=== PATIENT | female | born 1990 | race Caucasian/White ===

== ENCOUNTER 2020-01-09 12:18 | Outpatient (REF) | payer OTHER, SELFPAY ==
[2020-01-09 14:34] LABS: Amphetamine Screen Urine Not Detected (Not Detect); Barbiturates, Urine Not Detected (Not Detect); Benzodiazepines Screen Urine Not Detected (Not Detect); Cannabinoid Screen Urine Not Detected (Not Detect); Cocaine Screen Urine Not Detected (Not Detect); Opiate Screen Urine Not Detected (Not Detect); Phencyclidine Screen Urine Not Detected (Not Detect)
== END 2020-01-09 12:19 | disposition home or self-care (01) ==
LOC: HO.LABR 12:18
PROVIDERS: PCP Hospitalist; Visit Provider Physician Assistant
DX: F11.99 Opioid use, unspecified with unspecified opioid-induced disorder (principal)
CPT/HCPCS: 36415; 80307

== ENCOUNTER 2020-01-15 12:16 | Outpatient (REF) | payer OTHER, SELFPAY ==
[2020-01-15 13:36] LABS: Amphetamine Screen Urine Not Detected (Not Detect); Barbiturates, Urine Not Detected (Not Detect); Benzodiazepines Screen Urine Not Detected (Not Detect); Cannabinoid Screen Urine Not Detected (Not Detect); Cocaine Screen Urine Not Detected (Not Detect); Opiate Screen Urine Not Detected (Not Detect); Phencyclidine Screen Urine Not Detected (Not Detect)
== END 2020-01-15 12:17 | disposition home or self-care (01) ==
LOC: HO.LABR 12:16
PROVIDERS: Visit Provider Physician Assistant
DX: F11.99 Opioid use, unspecified with unspecified opioid-induced disorder (principal)
CPT/HCPCS: 80307

== ENCOUNTER 2020-01-22 13:39 | Outpatient (REF) | payer OTHER, SELFPAY ==
[2020-01-22 15:41] LABS: Amphetamine Screen Urine Not Detected (Not Detect); Barbiturates, Urine Not Detected (Not Detect); Benzodiazepines Screen Urine Not Detected (Not Detect); Cannabinoid Screen Urine Not Detected (Not Detect); Cocaine Screen Urine Not Detected (Not Detect); Opiate Screen Urine Not Detected (Not Detect); Phencyclidine Screen Urine Not Detected (Not Detect)
== END 2020-01-22 13:40 | disposition home or self-care (01) ==
LOC: HO.LABR 13:39
PROVIDERS: PCP Hospitalist; Visit Provider Physician Assistant
DX: F11.99 Opioid use, unspecified with unspecified opioid-induced disorder (principal)
CPT/HCPCS: 80307

== ENCOUNTER 2020-01-27 11:40 | Outpatient (REF) | payer OTHER, SELFPAY ==
[2020-01-27 13:19] LABS: Amphetamine Screen Urine Not Detected (Not Detect); Barbiturates, Urine Not Detected (Not Detect); Benzodiazepines Screen Urine Not Detected (Not Detect); Cannabinoid Screen Urine Not Detected (Not Detect); Cocaine Screen Urine Not Detected (Not Detect); Opiate Screen Urine Not Detected (Not Detect); Phencyclidine Screen Urine Not Detected (Not Detect)
== END 2020-01-27 11:41 | disposition home or self-care (01) ==
LOC: HO.LABR 11:40
PROVIDERS: PCP Hospitalist; Visit Provider Physician Assistant
DX: F11.99 Opioid use, unspecified with unspecified opioid-induced disorder (principal)
CPT/HCPCS: 80307

== ENCOUNTER 2020-02-03 12:45 | Outpatient (REF) | payer OTHER, SELFPAY ==
[2020-02-03 14:48] LABS: Amphetamine Screen Urine Not Detected (Not Detect); Barbiturates, Urine Not Detected (Not Detect); Benzodiazepines Screen Urine Not Detected (Not Detect); Cannabinoid Screen Urine Not Detected (Not Detect); Cocaine Screen Urine Not Detected (Not Detect); Opiate Screen Urine Not Detected (Not Detect); Phencyclidine Screen Urine Not Detected (Not Detect)
[2020-02-04 01:50] LABS: CT PCR NOT DETECTED (Not Detect.); NG PCR NOT DETECTED (Not Detect.)
[2020-02-04 11:27] LABS: BV Int Neg Control Negative (Negative); BV Int Pos Control Positive (Positive)
== END 2020-02-03 12:46 | disposition home or self-care (01) ==
LOC: HO.LAB 12:45
PROVIDERS: Advanced Practice Midwife; PCP Hospitalist; Visit Provider Physician Assistant
DX: N89.8 Other specified noninflammatory disorders of vagina (principal); B00.1 Herpesviral vesicular dermatitis; Z20.2 Contact with and (suspected) exposure to infections with a predominantly sexual mode of transmission; Z87.891 Personal history of nicotine dependence; Z30.09 Encounter for other general counseling and advice on contraception
CPT/HCPCS: 80307; 87480; 87491; 87510; 87591; 87660; 99212; 99213

== ENCOUNTER 2020-02-12 11:18 | Outpatient (REF) | payer OTHER, SELFPAY ==
[2020-02-12 12:42] LABS: Amphetamine Screen Urine Not Detected (Not Detect); Barbiturates, Urine Not Detected (Not Detect); Benzodiazepines Screen Urine Not Detected (Not Detect); Cannabinoid Screen Urine Not Detected (Not Detect); Cocaine Screen Urine Not Detected (Not Detect); Opiate Screen Urine Not Detected (Not Detect); Phencyclidine Screen Urine Not Detected (Not Detect)
== END 2020-02-12 11:19 | disposition home or self-care (01) ==
LOC: HO.LAB 11:18
PROVIDERS: Absent Provider Physician Assistant; PCP Hospitalist; Visit Provider Internal Medicine
DX: F11.99 Opioid use, unspecified with unspecified opioid-induced disorder (principal); Z20.828 Contact with and (suspected) exposure to other viral communicable diseases
CPT/HCPCS: 80307; C9803; U0003

== ENCOUNTER 2020-02-21 12:32 | Outpatient (REF) | payer OTHER, SELFPAY ==
[2020-02-21 14:05] LABS: Amphetamine Screen Urine Not Detected (Not Detect); Barbiturates, Urine Not Detected (Not Detect); Benzodiazepines Screen Urine Not Detected (Not Detect); Cannabinoid Screen Urine Not Detected (Not Detect); Cocaine Screen Urine Not Detected (Not Detect); Opiate Screen Urine Not Detected (Not Detect); Phencyclidine Screen Urine Not Detected (Not Detect)
== END 2020-02-21 12:33 | disposition home or self-care (01) ==
LOC: HO.LABR 12:32
PROVIDERS: PCP Hospitalist; Visit Provider Physician Assistant
DX: F11.99 Opioid use, unspecified with unspecified opioid-induced disorder (principal)
CPT/HCPCS: 80307

== ENCOUNTER 2020-02-24 14:22 | Outpatient (REF) | payer OTHER, SELFPAY ==
[2020-02-24 16:56] LABS: Amphetamine Screen Urine Not Detected (Not Detect); Barbiturates, Urine Not Detected (Not Detect); Benzodiazepines Screen Urine Not Detected (Not Detect); Cannabinoid Screen Urine Not Detected (Not Detect); Cocaine Screen Urine Not Detected (Not Detect); Opiate Screen Urine Not Detected (Not Detect); Phencyclidine Screen Urine Not Detected (Not Detect)
== END 2020-02-24 14:23 | disposition home or self-care (01) ==
LOC: HO.LABR 14:22
PROVIDERS: Absent Provider Physician Assistant; PCP Hospitalist; Visit Provider Advanced Practice Midwife
DX: Z30.430 Encounter for insertion of intrauterine contraceptive device (principal); B00.1 Herpesviral vesicular dermatitis; Z87.891 Personal history of nicotine dependence
CPT/HCPCS: 58300; 80307

== ENCOUNTER 2020-03-03 14:36 | Outpatient (REF) | payer OTHER, SELFPAY ==
[2020-03-03 16:09] LABS: Amphetamine Screen Urine Not Detected (Not Detect); Barbiturates, Urine Not Detected (Not Detect); Benzodiazepines Screen Urine Not Detected (Not Detect); Cannabinoid Screen Urine Not Detected (Not Detect); Cocaine Screen Urine Not Detected (Not Detect); Opiate Screen Urine Not Detected (Not Detect); Phencyclidine Screen Urine Not Detected (Not Detect)
== END 2020-03-03 14:37 | disposition home or self-care (01) ==
LOC: HO.LABR 14:36
PROVIDERS: PCP Hospitalist; Visit Provider Physician Assistant
DX: F11.99 Opioid use, unspecified with unspecified opioid-induced disorder (principal)
CPT/HCPCS: 80307

== ENCOUNTER 2020-03-09 09:40 | Outpatient (REF) | payer OTHER, SELFPAY ==
[2020-03-09 11:53] LABS: Amphetamine Screen Urine Not Detected (Not Detect); Barbiturates, Urine Not Detected (Not Detect); Benzodiazepines Screen Urine Not Detected (Not Detect); Cannabinoid Screen Urine Not Detected (Not Detect); Cocaine Screen Urine Not Detected (Not Detect); Opiate Screen Urine Not Detected (Not Detect); Phencyclidine Screen Urine Not Detected (Not Detect)
== END 2020-03-09 09:41 | disposition home or self-care (01) ==
LOC: HO.LABR 09:40
PROVIDERS: PCP Hospitalist; Visit Provider Physician Assistant
DX: F11.99 Opioid use, unspecified with unspecified opioid-induced disorder (principal)
CPT/HCPCS: 80307

== ENCOUNTER 2020-03-16 12:13 | Outpatient (REF) | payer OTHER, SELFPAY ==
[2020-03-16 14:21] LABS: Amphetamine Screen Urine Not Detected (Not Detect); Barbiturates, Urine Not Detected (Not Detect); Benzodiazepines Screen Urine Not Detected (Not Detect); Cannabinoid Screen Urine Not Detected (Not Detect); Cocaine Screen Urine Not Detected (Not Detect); Opiate Screen Urine Not Detected (Not Detect); Phencyclidine Screen Urine Not Detected (Not Detect)
== END 2020-03-16 12:14 | disposition home or self-care (01) ==
LOC: HO.LABR 12:13
PROVIDERS: PCP Hospitalist; Visit Provider Physician Assistant
DX: F11.99 Opioid use, unspecified with unspecified opioid-induced disorder (principal)
CPT/HCPCS: 80307

== ENCOUNTER 2020-03-24 11:27 | Outpatient (REF) | payer OTHER, SELFPAY ==
[2020-03-24 13:05] LABS: Amphetamine Screen Urine Not Detected (Not Detect); Barbiturates, Urine Not Detected (Not Detect); Benzodiazepines Screen Urine Not Detected (Not Detect); Cannabinoid Screen Urine Not Detected (Not Detect); Cocaine Screen Urine Not Detected (Not Detect); Opiate Screen Urine Not Detected (Not Detect); Phencyclidine Screen Urine Not Detected (Not Detect)
== END 2020-03-24 11:28 | disposition home or self-care (01) ==
LOC: HO.LABR 11:27
PROVIDERS: PCP Hospitalist; Visit Provider Physician Assistant
DX: F11.99 Opioid use, unspecified with unspecified opioid-induced disorder (principal)
CPT/HCPCS: 80307

== ENCOUNTER 2020-03-30 13:37 | Outpatient (REF) | payer OTHER, SELFPAY ==
[2020-03-30 16:11] LABS: Amphetamine Screen Urine Not Detected (Not Detect); Barbiturates, Urine Not Detected (Not Detect); Benzodiazepines Screen Urine Not Detected (Not Detect); Cannabinoid Screen Urine Not Detected (Not Detect); Cocaine Screen Urine Not Detected (Not Detect); Opiate Screen Urine Not Detected (Not Detect); Phencyclidine Screen Urine Not Detected (Not Detect)
== END 2020-03-30 13:38 | disposition home or self-care (01) ==
LOC: HO.LABR 13:37
PROVIDERS: PCP Hospitalist; Visit Provider Advanced Practice Midwife
DX: F11.99 Opioid use, unspecified with unspecified opioid-induced disorder (principal); Z30.431 Encounter for routine checking of intrauterine contraceptive device; Z87.891 Personal history of nicotine dependence
CPT/HCPCS: 80307; 99212

== ENCOUNTER 2020-03-30 15:13 | Outpatient (REF) | payer OTHER, SELFPAY ==
[2020-03-31 09:46] LABS: BV Int Neg Control Negative (Negative); BV Int Pos Control Positive (Positive)
[2020-04-02 03:52] LABS: N. gonorrhoeae RNA TMA NOT DETECTED (NOT DETECTED)
[2020-04-02 15:26] LABS: C. trachomatis RNA TMA NOT DETECTED (NOT DETECTED)
== END 2020-03-30 15:14 | disposition home or self-care (01) ==
LOC: HO.LAB 15:13
PROVIDERS: Visit Provider Obstetrics & Gynecology
DX: N89.8 Other specified noninflammatory disorders of vagina (principal); Z20.2 Contact with and (suspected) exposure to infections with a predominantly sexual mode of transmission
CPT/HCPCS: 87480; 87491; 87510; 87591; 87660

== ENCOUNTER 2020-04-17 10:21 | Outpatient (REF) | payer OTHER, SELFPAY ==
[2020-04-17 14:43] LABS: TSH reflex Free T4 0.53 mIU/mL (0.32-4.0)
== END 2020-04-17 10:22 | disposition home or self-care (01) ==
LOC: HO.WFDLDS 10:21
PROVIDERS: Visit Provider Hospitalist
DX: E03.9 Hypothyroidism, unspecified (principal)
CPT/HCPCS: 36415; 84443

== ENCOUNTER 2020-06-11 06:33 | Emergency (ER) | payer OTHER, SELFPAY ==
--- NOTE | 2020-06-11 06:59 | ED_ITS ---
HPI - Female Genitourinary General Chief complaint: Urogenital-Female Stated complaint: ?UTI Time Seen by Provider: 06/11/20 06:58 Source: patient Mode of arrival: ambulatory Limitations: no limitations History of Present Illness MD elicited complaint: dysuria and UTI Pertinent past history: STI/STD and recurrent UTIs Onset (ago): day(s) (today ) Location of symptoms: urethra Severity: moderate Female Urogenital Radiation: Suprapubic Quality of pain: burning Consistency: intermittent Vaginal discharge: none Vaginal bleeding: none Urinary symptoms: Dysuria, Urgency and Frequency Exacerbating factors: urination Relieving factors: none Associated symptoms: denies other symptoms Treatment prior to arrival: none Sexual activity: Yes and New Sexual Partners Patient : No Related Data Home Medications Medication Instructions Recorded Confirmed bupropion HCl 300 mg 24 hr tablet, 300 mg PO QAM 01/15/20 04/17/20 extended release lithium carbonate 300 mg capsule 900 mg PO BEDTIME cap 01/15/20 04/17/20 lurasidone 40 mg tablet See Rx Instructions PO DAILY tab 01/15/20 04/17/20 medroxyprogesterone 150 mg/mL 150 mg IM [id number] 01/15/20 04/17/20 intramuscular suspension bupropion HCl 150 mg tablet,12 hr 150 mg PO DAILY 04/17/20 04/17/20 sustained-release levonorgestrel INTRAUTERINE 04/17/20 04/17/20 Previous Rx's Medication Instructions Recorded levothyroxine 75 mcg tablet 75 mcg PO DAILY 90 Days #90 tab 04/17/20 valacyclovir 1 gram tablet 1,000 mg PO DAILY 90 Days #90 tab 04/17/20 nitrofurantoin monohyd/m-cryst 100 mg PO BID 7 Days #14 cap 06/11/20 [Macrobid] ondansetron 4 mg PO Q8H PRN #20 tab 06/11/20 phenazopyridine [Pyridium] 100 mg PO TID PRN #6 tab 06/11/20 Allergies Allergy/AdvReac Type Severity Reaction Status Date / Time No Known Allergies Allergy Verified 04/17/20 09:57 Review of Systems Review of Systems: Constitutional : No Fever, No Chills ENT/Mouth : No sore throat Eyes: No Eye Pain, No Swelling Cardiovascular : No Chest Pain, No SOB Respiratory : No Cough, No Sputum, No Wheezing Gastrointestinal : No Nausea, No Vomiting, No Diarrhea Genitourinary : pos Dysuria, pos Urinary Frequency, No Hematuria, Musculoskeletal : No joint pain, No Myalgias, No Joint Swelling Skin : No Skin Lesions, No rash Neuro : No Weakness, No Numbness, No Dizziness, No Headache [facility] Past Medical History Attestation statement: The following information was validated with the patient. Medical History Herpes labialis without complication Surgical History History of wisdom tooth extraction Family History Family History Father Chronic mental illness Mother No problems noted. Brother In good health Family/Other FH: mental illness Social History Social History Alcohol intake: former Smoking Status: Former smoker Tobacco Type: E-Cigarette Advance Directives: No Advance Directives Information Provided: No Physical Exam Vital Signs: Vital Signs: Last Vital Signs Temp 98.5 F 06/11/20 07:06 Pulse 69 06/11/20 07:06 Resp 18 06/11/20 07:06 BP 110/63 06/11/20 07:06 Pulse Ox 99 06/11/20 07:06 Body Mass Index 24.3 Appearance: Alert. Oriented X3. No acute distress. Eyes: Pupils equal, round and reactive to light. ENT: Pharynx normal. Neck: Normal inspection. Neck supple. CVS: Normal heart rate and rhythm. Pulses normal. Respiratory: No respiratory distress. Breath sounds normal. Abdomen: Soft and nontender. Skin: Skin warm and dry. Normal skin color. Normal skin turgor. Extremities: No lower extremity edema. Neuro: Oriented X 3. No motor deficit. No sensory deficit. Course Course Course Narrative: declines G+C proph now MDM - Female Genitourinary MDM Narrative Medical decision making narrative: 30 yo female has IUD no vaginal discharge new sexual partner not using protection - here with just dysuria will need UA/preg, also will obtain GC and trich, she wants prophylacitc treatment for G+C Lab Data Labs: Lab Results 03/04/21 03/04/21 Range/Units 07:28 07:28 Urine Color DARK YELLOW Urine Appearance CLOUDY Urine pH 6.0 (5.0-8.0) Ur Specific [place] >= 1.030 H (1.005-1.025) Urine Protein 2+ H (NEG-TRACE) MG/DL Urine Glucose (UA) NEG (NEG) MG/DL Urine Ketones 5 (NEG) MG/DL Urine Blood 2+ H (NEG) Urine Nitrite POS H (NEG) Ur Leukocyte Esterase 1+ H (NEG) Urine RBC 5-9 H (0) /HPF Urine WBC 50-75 H (0-4) /HPF Ur Squamous Epith Cells 3+ /LPF Urine Bacteria 1+ /LPF Urine Test NEGATIVE (NEGATIVE) Discharge Plan Discharge Clinical Impression: UTI (urinary tract infection) Patient Disposition: Home, Self-Care Instructions: Urinary Tract Infection in Women (ED) Additional Instructions: WE WILL CALL YOU IF YOUR GONORRHEA AND CHLAMYDIA RESULTS ARE POSITIVE YOU WERE NOT TREATED FOR THEM AT THIS TIME Prescriptions: New ondansetron 4 mg tablet,disintegrating 4 mg PO Q8H PRN (Reason: nausea and vomiting) Qty: 20 RF: 0 nitrofurantoin monohyd/m-cryst [Macrobid] 100 mg capsule 100 mg PO BID 7 Days Qty: 14 RF: 0 phenazopyridine [Pyridium] 100 mg tablet 100 mg PO TID PRN (Reason: pain) Qty: 6 RF: 0 No Action lithium carbonate 300 mg capsule 900 mg PO BEDTIME RF: 0 Latuda 40 mg tablet See Rx Instructions PO DAILY RF: 0 bupropion HCl [Wellbutrin XL] 300 mg tablet extended release 24 hr 300 mg PO QAM RF: 0 medroxyprogesterone [Depo-Provera] 150 mg/mL suspension 150 mg IM [id number] RF: 0 [place] 17.5 mcg/24 hrs (5 yrs) 19.5 mg intrauterine device intrauterine RF: 0 bupropion HCl [Wellbutrin SR] 150 mg tablet sustained-release 12 hr 150 mg PO DAILY RF: 0 levothyroxine 75 mcg tablet 75 mcg PO DAILY 90 Days Qty: 90 RF: 1 valacyclovir 1 gram tablet 1,000 mg PO DAILY 90 Days Qty: 90 RF: 1 Stand Alone Forms: Work/School Release
[2020-06-11 07:06] VITALS: BP 110/63; PULSE 69; RESP 18; TEMP 36.9; O2SAT 99; BMI 24.3
--- NOTE | 2020-06-11 07:35 | PC.NURSE ---
SEEN B Y DR BOLIVAR AFTER TRIAGE. PT DECLINES MEDS FOR ? STD UNTIL UA COMES BACK.
[2020-06-11 07:53] LABS: Glucose Urine UA NEG (NEG); Leukocyte Esterase Urine 1+ (NEG); Nitrite Urine POS (NEG); Specific Gravity - Urine >= 1.030 (1.005-1.025); UACC Culture Trigger YES; Urine Blood 2+ (NEG); Urine Ketones 5 MG/DL (NEG); Urine Protein 2+ MG/DL (NEG-TRACE)
[2020-06-11 07:54] LABS: Appearance Urine CLOUDY; Color Urine DARK YELLOW; UPreg QC Valid YES
[2020-06-11 07:55] LABS: Urine Pregnancy NEGATIVE (NEGATIVE)
[2020-06-11 08:02] LABS: Bacteria Urine 1+ /LPF; Squamous Epithelial Cell Urine 3+ /LPF; WBC Urine 50-75 /HPF (0-4)
[2020-06-11] MEDS: Nitrofurantoin Monohyd/M-Cryst 100 MG CAPSULE PO (08:25)
[2020-06-11] MEDS: Phenazopyridine HCL 200 MG TABLET PO (08:25)
== END 2020-06-11 08:30 | disposition home or self-care (01) ==
PROVIDERS: Emergency Provider Emergency Medicine; PCP Hospitalist
DX: N39.0 Urinary tract infection, site not specified (principal); Z11.3 Encounter for screening for infections with a predominantly sexual mode of transmission; Z87.440 Personal history of urinary (tract) infections
CPT/HCPCS: 81001; 81003; 81025; 87086; 87088; 87186; 99282; 99283

== ENCOUNTER 2020-06-17 10:53 | Outpatient (REF) | payer OTHER, SELFPAY ==
[2020-06-17 13:20] LABS: CT PCR NOT DETECTED (Not Detect.); NG PCR NOT DETECTED (Not Detect.)
== END 2020-06-17 10:54 | disposition home or self-care (01) ==
LOC: HO.LAB 10:53
PROVIDERS: PCP Hospitalist; Visit Provider Physician Assistant Medical
DX: R30.0 Dysuria (principal); Z20.2 Contact with and (suspected) exposure to infections with a predominantly sexual mode of transmission
CPT/HCPCS: 87491; 87591

== ENCOUNTER 2020-06-17 11:34 | Outpatient (REF) | payer OTHER, SELFPAY ==
[2020-06-17 14:46] LABS: TSH reflex Free T4 0.68 uIU/mL (0.32-4.0)
== END 2020-06-17 11:35 | disposition home or self-care (01) ==
LOC: HO.10HDL 11:34
PROVIDERS: Visit Provider Hospitalist
DX: E03.9 Hypothyroidism, unspecified (principal)
CPT/HCPCS: 36415; 84443

== ENCOUNTER 2020-11-26 10:13 | Outpatient (REF) | payer OTHER, SELFPAY ==
[2020-11-26 11:41] LABS: Lithium 0.76 mmol/L (0.60-1.20)
[2020-11-26 11:48] LABS: Blood Urea Nitrogen 8 mg/dL (9-16); Cholesterol 176 mg/dL; Estimated Glomerular Filt Rate > 60; HDL Cholesterol 56 mg/dL; LDL Cholesterol Calculated 111 mg/dl; Triglycerides 45 mg/dL
[2020-11-26 12:06] LABS: Estimated Average Glucose 77 mg/dL; Hemoglobin A1c % 4.3 %
[2020-11-26 12:10] LABS: Thyroid Stimulating Hormone 1.35 uIU/mL (0.32-4.0)
== END 2020-11-26 10:14 | disposition home or self-care (01) ==
LOC: HO.LAB 10:13
PROVIDERS: PCP Hospitalist; Visit Provider Psychiatry & Neurology Psychiatry
DX: Z79.899 Other long term (current) drug therapy (principal)
CPT/HCPCS: 36415; 80061; 80178; 82565; 83036; 84443; 84520

== ENCOUNTER 2021-10-07 08:46 | Outpatient (REF) | payer MEDICARE, MEDICAID, SELFPAY ==
[2021-10-07 11:47] LABS: Hematocrit 40.5 % (37.0-47.0); Hemoglobin 13.6 g/dl (12.0-16.0); Mean Corpuscular HGB Conc 33.6 g/dl (31.0-35.0); Mean Corpuscular Hemoglobin 31.8 pg (27.0-33.0); Mean Corpuscular Volume 94.6 fL (80.0-98.0); Mean Platelet Volume 10.5 fL (9.4-12.3); Platelet Count 251 X10*3/uL (160-400); Red Blood Count 4.28 X10*6/uL (4.20-5.50); White Blood Count 7.4 X10*3/uL (4.8-10.8)
[2021-10-07 12:33] LABS: TSH reflex Free T4 0.52 uIU/mL (0.32-4.0)
[2021-10-07 12:41] LABS: Alanine Aminotransferase 11 U/L (0-31); Albumin Level 4.3 g/dL (3.5-5.0); Alkaline Phosphatase 59 U/L (39-117); Anion Gap 10 (12-20); Aspartate Amino Transferase 15 U/L (5-31); Bilirubin Total 0.4 mg/dL (0.0-1.0); Blood Urea Nitrogen 6 mg/dL (9-16); Calcium 9.6 mg/dL (8.4-10.2); Carbon Dioxide 29 mmol/L (22-29); Chloride 104 mmol/L (96-108); Cholesterol 149 mg/dL; Estimated Glomerular Filt Rate > 60; Glucose Random 87 mg/dL (60-115); HDL Cholesterol 56 mg/dL; LDL Cholesterol Calculated 80 mg/dl; Potassium 4.1 mmol/L (3.3-5.1); Sodium 139 mmol/L (135-145); Total Protein 6.5 g/dL (6.5-8.0); Triglycerides 67 mg/dL
== END 2021-10-07 08:47 | disposition home or self-care (01) ==
LOC: HO.WFDLDS 08:46
PROVIDERS: Visit Provider Hospitalist
DX: Z00.00 Encounter for general adult medical examination without abnormal findings (principal)
CPT/HCPCS: 36415; 80053; 80061; 84443; 85027

== ENCOUNTER 2021-12-21 10:37 | Outpatient (REF) | payer MEDICARE, MEDICAID, SELFPAY ==
[2021-12-21 12:13] LABS: Estimated Average Glucose 80 mg/dL; Hemoglobin A1c % 4.4 %
[2021-12-21 12:49] LABS: Blood Urea Nitrogen 8 mg/dL (9-16); Cholesterol 150 mg/dL; Estimated Glomerular Filt Rate > 60; HDL Cholesterol 52 mg/dL; LDL Cholesterol Calculated 89 mg/dl; Triglycerides 45 mg/dL
[2021-12-21 12:58] LABS: Thyroid Stimulating Hormone 0.25 uIU/mL (0.32-4.0)
== END 2021-12-21 10:38 | disposition home or self-care (01) ==
LOC: HO.LAB 10:37
PROVIDERS: PCP Hospitalist; Visit Provider Psychiatry & Neurology Psychiatry
DX: Z79.899 Other long term (current) drug therapy (principal)
CPT/HCPCS: 36415; 80061; 80178; 82565; 83036; 84443; 84520

== ENCOUNTER 2022-05-08 07:16 | Emergency (ER) | payer MEDICARE, MEDICAID, SELFPAY ==
--- NOTE | ~2022-05-08 | XR_ITS ---
EXAMINATION: XR CHEST CLINICAL INFORMATION: Shortness of breath and cough COMPARISON: Chest x-ray April 25, 2011 TECHNIQUE: 2 views of the chest were obtained. FINDINGS: Cardiac silhouette is normal in size. The lungs are well aerated. There is no lobar consolidation. No pleural effusion or pneumothorax. No acute osseous abnormality. XR/XR chest 2V IMPRESSION: No acute pulmonary pathology.
[2022-05-08 07:22] VITALS: BP 109/79; PULSE 84; RESP 18; TEMP 36.1; O2SAT 94; BMI 22.8
--- NOTE | 2022-05-08 07:52 | PC.NURSE ---
Well appearing female with wheezing and dry cough has been coughing then vomiting no vomiting currently. Patient has no stridor or respiratory distress. Wheezing noted. Patient is smoker unsure of sick contacts no recent travel. Neuros intact AOx 4 ambulates with strong independent gait. IV access obtained labs collected and sent will CTM
[2022-05-08 07:55] LABS: Basophils Percent Auto 0.4 % (0-2); Eosinophils Absolute Auto 1.6 X10*3/uL (0.0-0.4); Eosinophils Percent Auto 20.6 % (0-4); Hematocrit 36.7 % (37.0-47.0); Hemoglobin 12.7 g/dl (12.0-16.0); Imm Gran Abs Auto 0.01 X10*3/uL (0.00-0.03); Imm Gran Pct Auto 0.1 % (0.0-0.4); Lymphocytes Absolute Auto 0.3 X10*3/uL (1.2-4.9); Lymphocytes Percent Auto 3.5 % (20-40); MANUAL DIFF FLAG SCAN; Mean Corpuscular HGB Conc 34.6 g/dl (31.0-35.0); Mean Corpuscular Hemoglobin 31.8 pg (27.0-33.0); Mean Platelet Volume 9.4 fL (9.4-12.3); Monocytes Absolute Auto 0.4 X10*3/uL (0.1-1.2); Monocytes Percent Auto 5.7 % (2-11); Neutrophils Absolute Auto 5.4 x10*3/uL (2.0-8.3); Neutrophils Percent Auto 69.7 % (45-73); Platelet Count 173 X10*3/uL (160-400); Red Blood Count 3.99 X10*6/uL (4.20-5.50); Red Cell Distribution Width 12.4 % (11.0-16.0); SCAN SMEAR FLAG 1; White Blood Count 7.8 X10*3/uL (4.8-10.8)
[2022-05-08] MEDS: Albuterol Sulfate (0.083%) 2.5 MG/3 ML VIAL.NEB 10 MG INHALE (08:10)
[2022-05-08 08:12] VITALS: RESP 18; O2SAT 97
[2022-05-08 08:13] LABS: Alanine Aminotransferase 12 U/L (0-31); Albumin Level 3.8 g/dL (3.5-5.0); Alkaline Phosphatase 63 U/L (39-117); Anion Gap 11 (12-20); Aspartate Amino Transferase 18 U/L (5-31); Bilirubin Total 0.3 mg/dL (0.0-1.0); Blood Urea Nitrogen 12 mg/dL (9-16); Calcium 8.5 mg/dL (8.4-10.2); Carbon Dioxide 23 mmol/L (22-29); Chloride 105 mmol/L (96-108); Estimated Glomerular Filt Rate > 60; Glucose Random 90 mg/dL (60-115); Potassium 4.1 mmol/L (3.3-5.1); Sodium 135 mmol/L (135-145); Total Protein 5.7 g/dL (6.5-8.0)
--- NOTE | 2022-05-08 08:14 | ED.GENADULT ---
HPI - General Adult General Chief complaint: General Medical Stated complaint: Wheezing/Vomiting Time Seen by Provider: 05/08/22 07:39 Source: patient Mode of arrival: ambulatory History of Present Illness HPI narrative: 32-year-old female comes in with 5 days of worsening cough, denies any fever chills and states that she has started having shortness of breath and body aches. She does vape and smoke marijuana but denies history of asthma. Related Data Home Medications Medication Instructions Recorded Confirmed lurasidone 80 mg tablet 80 mg PO QPM 10/07/21 10/07/21 Previous Rx's Medication Instructions Recorded bupropion HCl 150 mg 24 hr tablet, 150 mg PO QAM #30 tabs 06/18/20 extended release bupropion HCl 300 mg 24 hr tablet, 300 mg PO QAM #30 tabs 06/18/20 extended release levonorgestrel 17.5 mcg/24 hrs 1 device intrauterine ONCE #1 ea 06/18/20 (5yrs) 19.5mg intrauterine device lithium carbonate 600 mg capsule See Rx Instructions PO .COMPLEX 06/18/20 #30 caps lurasidone 40 mg tablet (Latuda) 40 mg PO TID #90 tabs 06/18/20 levothyroxine 75 mcg tablet 75 mcg PO DAILY #90 tabs 10/07/21 valacyclovir 1 gram tablet 1,000 mg PO DAILY #90 tabs 10/07/21 prednisone 50 mg tablet 50 mg PO DAILY 4 days #4 tabs 05/08/22 Allergies Allergy/AdvReac Type Severity Reaction Status Date / Time No Known Allergies Allergy Verified 10/07/21 08:34 Review of Systems Review of Systems: Pertinent positives and negatives as stated in [facility] Past Medical History Source: nursing notes reviewed Medical History Herpes labialis without complication Surgical History History of wisdom tooth extraction Family History Family History Father Chronic mental illness Mother No problems noted. Brother In good health Family/Other FH: mental illness Social History Social History Housing: Apartment Alcohol intake: former Patient Tobacco Use Status: Former Tobacco user Cigarettes Per Day: 4 e-Cigarette/Vaping Use: Currently Using Second Hand Smoke Exposure: No Advance Directives: Yes Advance Directives Information Provided: Yes Advance Directives on File: No Patient : No service: No Current occupational status: employed Current occupational exposures/hazards: No Cognitive needs: No Hearing needs: No Vision needs: No Physical Exam ED Vital Signs: Vital Signs - 24 hr 05/08/22 07:22 05/08/22 08:12 Temperature 97.0 F Pulse Rate 84 Respiratory Rate 18 18 Blood Pressure 109/79 Pulse Oximetry 94 Oxygen Delivery Method Room Air BMI result Body Mass Index 22.8 VITAL SIGNS: Reviewed. GENERAL: Well developed, well nourished, in no acute distress. HEAD: Normocephalic/atraumatic EYES: PERRLA, EOMI EARS: Ext canals without abnormality OROPHARYNX: no oral lesions noted, posterior pharynx clear NECK: Supple, no adenopathy LUNGS: Normal breath sounds. No adventitious sounds or accessory muscle use. SpO2<94> CARDIOVASCULAR: Regular rate and rhythm without noted murmurs ABDOMEN: Soft, non-tender, non-distended with bowel sounds. MUSCULOSKELETAL: No tenderness, deformities, or effusions noted on gross inspection. EXTREMITIES: No cyanosis, clubbing or edema. SKIN: Inspection of the skin reveals no rashes NEUROLOGIC: Alert and oriented x 4. Strength and sensation to light touch were grossly intact x 4. Medications Administered Discontinued Medications Generic Name Dose Route Start Last Admin Trade Name Freq PRN Reason Stop Dose Admin Albuterol Sulfate 10 mg 05/08/22 07:58 05/08/22 08:10 Albuterol Sulfate (0.083%) 2.5 Mg/3 Ml Vial.Neb INHALE 05/08/22 07:59 10 mg ONCE ONE Administration Prednisone 50 mg 05/08/22 08:28 05/08/22 08:49 Prednisone 10 Mg Tablet PO 05/08/22 08:29 50 mg ONCE ONE Administration Medical Decision Making Medical Decision Making MDM Narrative: 32-year-old female with possible viral syndrome or bronchitis. Review of all investigations my interpretation is that this patient has viral syndrome and is influenza positive but is outside the window for treatment with Tamiflu. Patient received 1 breathing treatment and will put her on a short course of steroids and otherwise recommend for supportive treatment. Differential Diagnosis Differential Diagnoses: The differential diagnosis associated with the presentation includes Please see the discussion above Lab Data MDM Lab Attestation statement: I reviewed the patient's lab results. Please see the discussion above 05/08/22 07:45 05/08/22 07:45 Labs: Lab Results 05/08/22 05/08/22 05/08/22 Range/Units 07:45 07:45 07:49 WBC 7.8 (4.8-10.8) X10*3/uL RBC 3.99 L (4.20-5.50) X10*6/uL Hgb 12.7 (12.0-16.0) g/dl Hct 36.7 L (37.0-47.0) % MCV 92.0 (80.0-98.0) fL MCH 31.8 (27.0-33.0) pg MCHC 34.6 (31.0-35.0) g/dl RDW 12.4 (11.0-16.0) % Plt Count 173 D (160-400) X10*3/uL MPV 9.4 (9.4-12.3) fL Immature Gran % (Auto) 0.1 (0.0-0.4) % Neut % (Auto) 69.7 (45-73) % Lymph % (Auto) 3.5 L (20-40) % [place] % (Auto) 5.7 (2-11) % Eos % (Auto) 20.6 H (0-4) % Baso % (Auto) 0.4 (0-2) % Lymph # (Auto) 0.3 L (1.2-4.9) X10*3/uL [place] # (Auto) 0.4 (0.1-1.2) X10*3/uL Eos # (Auto) 1.6 H (0.0-0.4) X10*3/uL Baso # (Auto) 0.0 (0.0-0.2) X10*3/uL Abs Immat Gran (auto) 0.01 (0.00-0.03) X10*3/uL Absolute Neuts (auto) 5.4 (2.0-8.3) x10*3/uL Absolute Nucleated RBC 0.000 (0.0-0.012) X10*3/uL Nucleated RBC % (auto) 0.0 (0.0-0.2) /100WBC Smear Tech's Comments VERIFIED Sodium 135 (135-145) mmol/L Potassium 4.1 (3.3-5.1) mmol/L Chloride 105 (96-108) mmol/L Carbon Dioxide 23 (22-29) mmol/L Anion Gap 11 L (12-20) BUN 12 (9-16) mg/dL Creatinine 0.99 (0.5-1.4) mg/dL Estim Creat Clear Calc 83.0 Estimated GFR > 60 Random Glucose 90 (60-115) mg/dL Calcium 8.5 D (8.4-10.2) mg/dL Total Bilirubin 0.3 (0.0-1.0) mg/dL AST 18 (5-31) U/L ALT 12 (0-31) U/L Alkaline Phosphatase 63 (39-117) U/L Total Protein 5.7 L (6.5-8.0) g/dL Albumin 3.8 (3.5-5.0) g/dL Beta HCG, Quant < 2 mIU/mL Influenza Type A (PCR) NEGATIVE (Negative) Influenza Type B (PCR) POSITIVE A (Negative) RSV RNA Qual (PCR) NEGATIVE (Negative) SARS-CoV-2 RNA (RT-PCR) NEGATIVE (Negative) Radiology Impression Radiologist Impression: Interpretation is in agreement with radiology's impression of the imaging study. External Record Review External record reviewed: Outpatient record and Prior outpatient labs Discharge Plan Discharge Clinical Impression: Influenza A, Viral syndrome Patient Disposition: Home, Self-Care Instructions: Influenza (ED), Viral Syndrome (ED) Additional Instructions: 1. Resume all home medications as prescribed. 2. Complete the short course of steroids. 3. You have been diagnosed with influenza a but you are out of the window for Tamiflu at this time. Therefore, please continue treatment with Tylenol/ibuprofen as needed for body aches headaches, temperatures greater than 100.4, drink plenty of water injure symptoms will be maximal between 5-7 days. Return to the ER for any worsening symptoms. Prescriptions: New prednisone 50 mg tablet 50 mg PO DAILY 4 Days Qty: 4 0RF No Action bupropion HCl 300 mg tablet extended release 24 hr 300 mg PO QAM Qty: 30 0RF bupropion HCl 150 mg tablet extended release 24 hr 150 mg PO QAM Qty: 30 0RF lithium carbonate 600 mg capsule See Rx Instructions PO .COMPLEX Qty: 30 0RF Rx Instructions: 900 PO bedtime; levonorgestrel 17.5 mcg/24 hrs (5 yrs) 19.5 mg intrauterine device 1 device intrauterine ONCE Qty: 1 0RF Latuda 40 mg tablet 40 mg PO TID Qty: 90 0RF Rx Instructions: must administer with food (at least 350 calories) lurasidone 80 mg tablet 80 mg PO QPM Rx Instructions: must administer with food (at least 350 calories) valacyclovir 1 gram tablet 1,000 mg PO DAILY Qty: 90 2RF levothyroxine 75 mcg tablet 75 mcg PO DAILY Qty: 90 1RF Referrals: Pam Barrera NP [Primary Care Provider] -
[2022-05-08 08:16] LABS: SLIDE REVIEW VERIFIED
[2022-05-08 08:34] LABS: Influenza A PCR NEGATIVE (Negative); Influenza B PCR POSITIVE (Negative); Resp Syncy Virus RNA Qual PCR NEGATIVE (Negative); SARS COV2 PCR INHOUSE NEGATIVE (Negative)
[2022-05-08] MEDS: predniSONE 10 MG TABLET 50 MG PO (08:49)
[2022-05-08 08:57] LABS: HCG Quantitative < 2 mIU/mL
--- NOTE | 2022-05-08 09:49 | PC.NURSE ---
This RN (charge rn) to discharge and medicate pt however pt left prior to media director and d/c paperwork
== END 2022-05-08 09:51 | disposition home or self-care (01) ==
PROVIDERS: Emergency Provider Student in an Organized Health Care Education/Training Program; PCP Hospitalist
DX: J10.1 Influenza due to other identified influenza virus with other respiratory manifestations (principal); R05.9 Cough, unspecified; R50.9 Fever, unspecified; M79.10 Myalgia, unspecified site; Z20.822 Contact with and (suspected) exposure to COVID-19; Z20.828 Contact with and (suspected) exposure to other viral communicable diseases; Z79.899 Other long term (current) drug therapy; Z87.891 Personal history of nicotine dependence
CPT/HCPCS: 0241U; 36415; 71046; 80053; 84702; 85025; 94640; 99284

== ENCOUNTER 2022-07-07 10:01 | Outpatient (REF) | payer MEDICARE, MEDICAID, SELFPAY ==
[2022-07-08 11:09] LABS: CT PCR NOT DETECTED (Not Detect.); NG PCR NOT DETECTED (Not Detect.)
[2022-07-08 12:32] LABS: BV Int Neg Control Negative (Negative); BV Int Pos Control Positive (Positive)
[2022-07-12 04:08] LABS: HPV mRNA E6/E7 rflx Not Detected (Not Detected)
== END 2022-07-07 10:02 | disposition home or self-care (01) ==
LOC: HO.LNP 10:01
PROVIDERS: PCP Hospitalist; Visit Provider Advanced Practice Midwife
DX: Z01.419 Encounter for gynecological examination (general) (routine) without abnormal findings (principal); B37.31 Acute candidiasis of vulva and vagina; B00.1 Herpesviral vesicular dermatitis; F41.8 Other specified anxiety disorders; J45.909 Unspecified asthma, uncomplicated; Z79.899 Other long term (current) drug therapy; Z20.2 Contact with and (suspected) exposure to infections with a predominantly sexual mode of transmission
CPT/HCPCS: 0353U; 87480; 87510; 87624; 87660; 88142; 99212

== ENCOUNTER 2023-01-25 07:42 | Outpatient (REF) | payer MEDICARE, MEDICAID, SELFPAY ==
[2023-01-25 08:25] LABS: Estimated Average Glucose 82 mg/dL; Hemoglobin A1c % 4.5 % (<6.0)
[2023-01-25 08:35] LABS: Lithium 0.66 mmol/L (0.60-1.20)
[2023-01-25 08:42] LABS: Blood Urea Nitrogen 12 mg/dL (9-16); Cholesterol 171 mg/dL (<200); Estimated Glomerular Filt Rate > 60; HDL Cholesterol 62 mg/dL (>40); LDL Cholesterol Calculated 98 mg/dL (<100); Triglycerides 55 mg/dL (<150)
== END 2023-01-25 07:43 | disposition home or self-care (01) ==
LOC: HO.LAB 07:42
PROVIDERS: PCP Nurse Practitioner Family; Visit Provider Psychiatry & Neurology Psychiatry
DX: Z79.899 Other long term (current) drug therapy (principal)
CPT/HCPCS: 36415; 80061; 80178; 82565; 83036; 84520

== ENCOUNTER 2023-04-06 12:27 | Outpatient (AMB) | payer MEDICARE, MEDICAID, SELFPAY ==
[2023-04-06 12:42] VITALS: BP 98/64; PULSE 63; RESP 13; TEMP 36.3; O2SAT 99; BMI 23.0
--- NOTE | 2023-04-06 12:42 | A.OFFPC_ITS ---
Vital Signs 04/06/23 12:42 Height 5 ft 8 in Weight 151 lb 6 oz BMI 23.0 BP 98/64 Blood Pressure Location Rt brachial Position Sitting Respiration 13 Pulse 63 Pulse Source Pulse Oximeter Temp 97.4 F Temp Source Temporal Artery Scan Pulse Oximetry (%) 99 Oxygen Delivery Method Room Air Intake Visit Reasons: Transfer from [facility] Intake Note: Patient states that she has been having issues with her hearing and would like to know if referral to ENT is neccesary. Patient states that shes been tanning for the past 10 years and havent been safely doing so and would like to get her skin checked due to her noticing the tanning spots on face. Patient also believes she has arthritis due to her hand hurting after writing for a few minutes or holding things for a few minutes. Patient currently has a yeast infection and would like treatment. Patient would like thyroid checked as well. Medical Oncology Physician Required: No Accompanied by: Self / Same As Patient Allergies No Known Allergies Allergy (Verified 04/06/23 13:01) Medication List - Last Reconciled 04/06/23 by Marilyn Daniels CNP bupropion HCl 150 mg PO QAM bupropion HCl 300 mg PO QAM levonorgestrel 1 device intrauterine ONCE levothyroxine 75 mcg PO DAILY lithium carbonate 900 PO bedtime; lurasidone 80 mg PO QPM montelukast (Singulair) 10 mg PO BEDTIME valacyclovir 1,000 mg PO DAILY Ventolin HFA 90 mcg/actuation (albuterol sulfate) 2 puffs inhalation Q6H PRN 1 month NS Tobacco use date assessed: 04/06/23 Dental Screening Dental Screen Date: 04/06/23 Did you have a dental visit in the last 12 months?: Yes Did you have a dental problem in the last 6 months where you did not have access to dental care?: No Was dental information given to patient?: Patient has dentist HPI HPI Comments History of Present Illness Details 33-year-old female presents for transfer of care Her former PCP is RITO who is no longer with the practice. Her last office visit was in 06/2021; she had an extended physical exam. She had blood work done in April 2022 She has history of asthma, hypothyroidism, anxiety, and, depression, bipolar, and borderline personality disorder She is followed by [facility]. She is followed by a psychiatrist every 3 month and a therapist every week. Her psychotropic medications are managed by her psychiatrist She reports [id number] both ear for about 3 years. Her symptoms have progressively gotten worse She notes brown spots on her face and anterior neck which resulted from tanning. She notes that she has been tanning for the past 10 years without taking required precautions. She requests dermatology referral for evaluation She reports off white/cloudy vaginal discharge and mild vaginal itching for the past one and half week. No vaginal or abdominal pain. She states that her partner may also have yeast infection She notes that she is sexually active, in a monogamous relationship, and practices safe sex ON LICENSE OF [facility] Medical History (Updated 04/06/23 @ 13:48 by Marilyn Daniels CNP) Herpes labialis without complication Surgical History History of wisdom tooth extraction Family History Father Chronic mental illness Mother No problems noted. Brother In good health Family/Other FH: mental illness Social History (Updated 07/07/22 @ 10:06 by SHIREEN Soliman) Housing: Apartment Alcohol intake: former Patient Tobacco Use Status: Former Tobacco user e-Cigarette/Vaping Use: Never Used Second Hand Smoke Exposure: No Substance Use Type: Marijuana service: No Current occupational status: employed Current occupation: [email or web address] Current occupational exposures/hazards: No Cognitive needs: No Hearing needs: No Vision needs: No Female Reproductive History Menstrual Age of Menarche: 15 Questionnaire PHQ-9 Over the last 2 weeks, how often have you been bothered by any of the following problems? 1. Little interest or pleasure in doing things: not at all 2. Feeling down, depressed, or hopeless: not at all 3. Trouble falling or staying asleep, or sleeping too much: not at all 4. Feeling tired or having little energy: not at all 5. Poor appetite or overeating: not at all 6. Feeling bad about yourself - or that you are a failure or have let yourself or your family down: not at all 7. Trouble concentrating on things, such as reading the newspaper or watching television: not at all 8. Moving or speaking so slowly that other people could have noticed. Or the opposite - being so fidgety or restless that you have been moving around a lot more than usual: not at all 9. Thoughts that you would be better off or of hurting yourself in some way: not at all Total score: 0 Depression Screening Interpretation: Negative Depression Screening Done: Yes 64807 - PHQ-9 Billing: Yes Source: Developed by Drs. Fracisco Mauro, Lalita Wilkes, Jacky Chavez and colleagues, with an educational chris from [employer]. Thrive Questionnaire Date Thrive assessed: 04/06/23 I am a: Patient What is your living situation today?: I have a steady place to live Within the past 12 months, did the food you bought not last and you didn't have the money to get more?: Never true Within the past 12 months, did you worry whether your food would run out before you got money to buy more?: Never true Do you have trouble paying for medicines?: No Do you have trouble getting transportation to medical appointments?: No Do you have trouble paying your heating and electricity bill?: No Do you have trouble taking care of your child, family member or friend?: No Do you have trouble with day-to-day activities such as bathing, preparing meals, shopping, managing finances, etc.?: No Are you currently unemployed and looking for a job?: No Are you interested in more education?: No Please select the resources that you would like help with: None Currently or been in a relationship where the following occur: no concerns reported AUDIT C Alcohol Use Questionnaire (AUDIT-C) 1. How often do you have a drink containing alcohol?: Monthly or less 2. How many drinks containing alcohol do you have on a typical day when you are drinking?: 1 or 2 3. How often do you have six or more drinks on one occasion?: Never Total Score: 1 NEIL-7 AMB Questionnaire NEIL-7 Date NEIL - 7 assessed: 04/06/23 Feeling nervous, anxious, or on edge: 0 = Not at all Not being able to stop or control worryin = Not at all Worrying too much about different things: 0 = Not at all Trouble relaxin = Not at all Being so restless that it is hard to sit still: 0 = Not at all Becoming easily annoyed or irritable: 0 = Not at all Feeling afraid as if something awful might happen: 0 = Not at all Total NEIL-7 score (0-4 normal; 5-9 mild; 10-14 moderate; 15-21 severe): 0 Source: Developed by Drs. Fracisco Mauro, Lalita Wilkes, Jacky Chavez and colleagues, with an educational chris from [employer]. NEIL-7 Assessment Billing NEIL-7 Assessment Tool: NEIL-7 Assessment 14886 ACT Questionnaire In the past 4 weeks, how much of the time did your asthma keep you from getting as much done at work, school or at home?: All of the time During the past 4 weeks, how often have you had shortness of breath?: More than once a day During the past 4 weeks, how often did your asthma symptoms wake you up at night or earlier than usual in the morning?: Not at all During the past 4 weeks, how often have you had to use your rescue inhaler or nebulizer medication?: Not at all How would you rate your asthma control during the past 4 weeks?: Well controlled ACT Interpretation: Positive Score: 16 Review of Systems Const Details: Const Denies chills, Denies fatigue, Denies fever(s), Denies headache(s) and Denies weakness ENT Denies dizziness and Denies headache(s) Card Denies chest pain, Denies lightheadedness, Denies dyspnea and Denies other (Palpitations) Resp Denies cough, Denies dyspnea, Denies wheezing and Denies other ( shortness of breath) GI Denies abdominal pain, Denies melena, Denies hematochezia, Denies change in bowel habits, Denies dyspepsia and Denies nausea Reports as per HPI Musc Denies abnormal gait, Denies myalgias, Denies arthralgias, Denies numbness and Denies tingling Skin/Breast Reports as per HPI Neuro Denies abnormal gait, Denies dizziness, Denies headache(s), Denies memory loss, Denies numbness, Denies Sensory deficit (Neuro), Denies tingling and Denies weakness Psych Denies anxiety, Denies depression, Denies memory loss Endo Denies cold intolerance, Denies fatigue, Denies heat intolerance, Denies polydipsia and Denies polyuria Aller/Immun Denies wheezing Physical exam (Primary Care) Vital Signs: Last Vital Signs Temp 97.4 F 04/06/23 12:42 Pulse 63 04/06/23 12:42 Resp 13 04/06/23 12:42 BP 98/64 04/06/23 12:42 Pulse Ox 99 04/06/23 12:42 Oxygen Delivery Method Room Air 04/06/23 12:42 BMI result Body Mass Index 23.0 Tobacco/Smoking Status: Tobacco use Status Tobacco use date assessed 10/07/21 06/23/22 14:42 Patient Tobacco Use Status Former Tobacco user 07/07/22 10:06 Tobacco use type 10/07/21 08:46 e-Cigarette/Vaping Use Currently Using 07/07/22 10:06 Depression Screening Interpretation: Negative Thrive Assessment: Date of Thrive Assessment Date Thrive assessed 10/07/21 06/23/22 14:42 Currently or been in a relationship where the following occur: no concerns reported Const Other: General: no acute distress and well developed Nutritional Appearance: well nourished Orientation/consciousness: patient oriented x3 HENMT Head: Yes normocephalic and Yes atraumatic Eyes General: appearance normal, both eyes and all related structures Pupils: Equal, round and reactive pupils present EOM: EOMs intact bilaterally Resp Effort & Inspection: normal respiratory effort Auscultation: clear to auscultation bilaterally Cardio Rate: regular rate Rhythm: regular rhythm Heart sounds: S1 normal heart sound present, S2 normal heart sound present, no gallops, no murmurs and no rubs GI Palpation (GI): No Abdominal aortic bruit present, Soft to palpation, nontender, No hepatosplenomegaly present and No Rebound tenderness present Auscultation: normal bowel sounds General: Yes no CVA tenderness Back/Spine/Pelvis Back: no CVA tenderness Cervical Spine: cervical ROM normal and No Cervical spine tenderness Thoracic/Lumbar Spine: thoraco-lumbar ROM normal, No pain with thoraco-lumbar ROM, No thoracic spinal tenderness and No lumbar spinal tenderness Extrem General: Yes normal to inspection, No edema and No calf tenderness Skin General: warm and dry. Normal skin color. Normal skin turgor Lesions: no lesions Rashes: Light brown, macular rash, and pink papular rash noted to her face and anterior neck Trauma: no lacerations or abrasions Wounds: no wounds Nails: normal Neuro General: patient oriented x3, gait normal and no focal neuro deficit Cranial nerves: Yes Equal, round and reactive pupils present Cognition (Neuro): normal cognition Gait exam (Neuro): Normal gait present Sensory Exam: No Sensory deficit (Neuro) Psych Appearance: grossly normal Affect: normal affect Attitude: cooperative Thought process: Normal thought process present Assessment and Plan Assessment & Plan (1) Anxiety with depression: Code(s): F41.8 - Other specified anxiety disorders Plan: PHQ-9 and NEIL-7 score is normal Continue current treatment regimen Routine exercise encouraged Continue follow-up with [facility] Psychiatry as planned Follow-up in 3 months for an extended physical exam. Advised to get routine fasting blood work done before next visit Return sooner with symptoms or concerns Verbalized understanding and agreed with treatment plan (2) Bipolar disorder: Code(s): F31.9 - Bipolar disorder, unspecified Plan: As above (3) Borderline personality disorder: Code(s): F60.3 - Borderline personality disorder Plan: As above (4) Hypothyroidism (acquired): Code(s): E03.9 - Hypothyroidism, unspecified Plan: Her TSH level has not been checked in a while TSH/T4 ordered. Advised to get blood work done at her earliest convenience. Will review results and make changes as needed Continue to take levothyroxine as prescribed Verbalized understanding and agreed with treatment plan (5) Vaginal discharge: Code(s): N89.8 - Other specified noninflammatory disorders of vagina Plan: Reports off white/cloudy vaginal discharge and mild vaginal itching for the past one and half week. No vaginal abdominal pain Likely vaginal candidiasis Fluconazole ordered. Take as prescribed STD panel and urinalysis ordered. Advised to get labs done at at her earliest convenience Advised to encourage her partner to get evaluated and treated Follow-up with worsening or new symptoms Verbalized understanding and agreed with treatment plan (6) Acne: Code(s): L70.9 - Acne, unspecified Plan: She notes brown spots on her face and anterior neck as a result of 10 years of tanning without taking necessary precautions Light brown, macular rash, and pink papular rash noted to her face and anterior neck Referred to dermatology Follow-up with symptoms or concerns Verbalized understanding and agreed with treatment plan (7) Asthma: Code(s): J45.909 - Unspecified asthma, uncomplicated Plan: ACT score is 16, indicates partially control asthma Continue current treatment regimen Follow-up with worsening or new symptoms Verbalized understanding and agreed with treatment plan Orders: Orders CT NG by PCR Today N89.8 - Other specified noninflammatory disorders of vagina HIV Ab/Ag Today N89.8 - Other specified noninflammatory disorders of vagina Lipid Panel 3 Months Z00.00 - Encounter for general adult medical examination without abnormal findings UA CC w/rflx Micro + Cult 3 Months Z00.00 - Encounter for general adult medical examination without abnormal findings TSH reflex Free T4 Today E03.9 - Hypothyroidism, unspecified Hepatitis B,C Profile Today N89.8 - Other specified noninflammatory disorders of vagina Syphilis Screen Today N89.8 - Other specified noninflammatory disorders of vagina Complete Blood Count Auto Diff 3 Months Z00.00 - Encounter for general adult medical examination without abnormal findings Comprehensive [place]. Panel Fast 3 Months Z00.00 - Encounter for general adult medical examination without abnormal findings TSH reflex Free T4 3 Months Z00.00 - Encounter for general adult medical examination without abnormal findings UA CC w/rflx Micro + Cult Today N89.8 - Other specified noninflammatory disorders of vagina Referrals Dermatology Referral L70.9 - Acne, unspecified Medications: Refilled fluconazole may repeat second dose 72 hrs after first dose if symptoms persist 150 mg PO Q3D 2 doses 2 tabs 0RF Coding Level of Care Code Est Pt Level 4 (50704) Diagnoses Anxiety with depression F41.8 Bipolar disorder F31.9 Borderline personality disorder F60.3 Hypothyroidism (acquired) E03.9 Vaginal discharge N89.8 Acne L70.9 Asthma J45.909 Additional Codes NEIL-7 Assessment Billing - NEIL-7 Assessment Tool: NEIL-7 Assessment 26929 ([id number])
== END 2023-04-06 13:27 | disposition home or self-care (01) ==
PROVIDERS: PCP Nurse Practitioner Family; Visit Provider Nurse Practitioner Family
DX: F41.8 Other specified anxiety disorders (principal); F31.9 Bipolar disorder, unspecified; F60.3 Borderline personality disorder; E03.9 Hypothyroidism, unspecified; N89.8 Other specified noninflammatory disorders of vagina; L70.9 Acne, unspecified; J45.909 Unspecified asthma, uncomplicated
CPT/HCPCS: 99214

== ENCOUNTER 2023-06-19 15:42 | Outpatient (AMB) | payer MEDICARE, MEDICAID, SELFPAY ==
--- NOTE | 2023-06-19 15:45 | MHC.PC.OV ---
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 Accompanied by: Self / Same As Patient Allergies No Known Allergies Allergy (Verified 06/19/23 15:57) Medication List - Last Reconciled 06/19/23 by Marilyn Daniels CNP bupropion HCl 150 mg PO QAM bupropion HCl 300 mg PO QAM fluconazole 150 mg PO Q3D 2 doses levonorgestrel 1 device intrauterine ONCE levothyroxine 75 mcg PO DAILY lithium carbonate 900 PO bedtime; lurasidone 80 mg PO QPM lurasidone 20 mg PO QPM montelukast (Singulair) 10 mg PO BEDTIME valacyclovir 1,000 mg PO DAILY Ventolin HFA 90 mcg/actuation (albuterol sulfate) 2 puffs inhalation Q6H PRN 1 month NS Tobacco use date assessed: 04/06/23 Dental Screening Dental Screen Date: 06/19/23 Did you have a dental visit in the last 12 months?: Yes Did you have a dental problem in the last 6 months where you did not have access to dental care?: No Was dental information given to patient?: Patient has dentist HPI HPI Comments History of Present Illness Details 33-year-old female presents for an extended physical exam She has history of asthma, hypothyroidism, anxiety, and, depression, bipolar, and borderline personality disorder She notes that she was diagnosed with ADHD at childhood She is followed by [facility]. She is followed by a psychiatrist every 3 month and a therapist every week. 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 Brother In good health Family/Other FH: mental illness Other Substance abuse Social History Housing: Apartment Alcohol intake: former Patient Tobacco Use Status: Former Tobacco user e-Cigarette/Vaping Use: Currently Using Second Hand Smoke Exposure: No Substance Use Type: Marijuana service: No Current occupational status: employed Current occupation: [employer] Current occupational exposures/hazards: No Cognitive needs: No Hearing needs: No Vision needs: No Female Reproductive History Menstrual Age of Menarche: 15 Questionnaire PHQ-9 Over the last 2 weeks, how often have you been bothered by any of the following problems? 1. Little interest or pleasure in doing things: not at all 2. Feeling down, depressed, or hopeless: not at all 3. Trouble falling or staying asleep, or sleeping too much: not at all 4. Feeling tired or having little energy: not at all 5. Poor appetite or overeating: not at all 6. Feeling bad about yourself - or that you are a failure or have let yourself or your family down: not at all 7. Trouble concentrating on things, such as reading the newspaper or watching television: not at all 8. Moving or speaking so slowly that other people could have noticed. Or the opposite - being so fidgety or restless that you have been moving around a lot more than usual: not at all 9. Thoughts that you would be better off or of hurting yourself in some way: not at all Total score: 0 Depression Screening Interpretation: Negative Depression Screening Done: Yes 53271 - PHQ-9 Billing: Yes Source: Developed by Drs. Fracisco Mauro, Lalita Wilkes, Jacky Chavez and colleagues, with an educational chris from [employer]. Thrive Questionnaire Date Thrive assessed: 06/19/23 I am a: Patient What is your living situation today?: I have a steady place to live Within the past 12 months, did the food you bought not last and you didn't have the money to get more?: Never true Within the past 12 months, did you worry whether your food would run out before you got money to buy more?: Never true Do you have trouble paying for medicines?: No Do you have trouble getting transportation to medical appointments?: No Do you have trouble paying your heating and electricity bill?: No Do you have trouble taking care of your child, family member or friend?: No Do you have trouble with day-to-day activities such as bathing, preparing meals, shopping, managing finances, etc.?: No Are you currently unemployed and looking for a job?: No Are you interested in more education?: No Please select the resources that you would like help with: None Currently or been in a relationship where the following occur: no concerns reported THRIVE Score: 0 AUDIT C Alcohol Use Questionnaire (AUDIT-C) 1. How often do you have a drink containing alcohol?: Never 3. How often do you have six or more drinks on one occasion?: Never Total Score: 0 NEIL-7 AMB Questionnaire NEIL-7 Date NEIL - 7 assessed: 06/19/23 Feeling nervous, anxious, or on edge: 1 = Several days Not being able to stop or control worryin = Not at all Worrying too much about different things: 0 = Not at all Trouble relaxin = Several days Being so restless that it is hard to sit still: 1 = Several days Becoming easily annoyed or irritable: 1 = Several days Feeling afraid as if something awful might happen: 0 = Not at all Total NEIL-7 score (0-4 normal; 5-9 mild; 10-14 moderate; 15-21 severe): 4 Source: Developed by Drs. Fracisco Mauro, Lalita Wilkes, Jacky Chavez and colleagues, with an educational chris from [employer]. ACT Questionnaire In the past 4 weeks, how much of the time did your asthma keep you from getting as much done at work, school or at home?: None of the time During the past 4 weeks, how often have you had shortness of breath?: Not at all During the past 4 weeks, how often did your asthma symptoms wake you up at night or earlier than usual in the morning?: Not at all During the past 4 weeks, how often have you had to use your rescue inhaler or nebulizer medication?: Not at all How would you rate your asthma control during the past 4 weeks?: Completely controlled ACT Interpretation: Negative Score: 25 Review of Systems Const Details: Denies chills, Denies fatigue, Denies fever(s), Denies headache(s) and Denies weakness HEENT Denies change in vision, Denies dizziness, Denies headache(s), Denies hearing loss, Denies nasal congestion, Denies sinus pain, Denies sinus pressure and Denies sore throat Card Denies chest pain, Denies lightheadedness, Denies dyspnea and Denies other (palpitations) Resp Denies cough, Denies dyspnea and Denies wheezing GI Denies abdominal pain, Denies melena, Denies hematochezia, Denies change in bowel habits, Denies dyspepsia and Denies nausea Denies hematuria and Denies dysuria Musc Denies abnormal gait, Denies myalgias, Denies arthralgias, Denies numbness and Denies tingling Skin/Breast Denies rash, Denies unusual bruising and Denies wounds Neuro Denies abnormal gait, Denies dizziness, Denies headache(s), Denies memory loss, Denies numbness, Denies Sensory deficit (Neuro), Denies tingling and Denies weakness Psych Denies anxiety, Denies depression and Denies memory loss Endo Denies cold intolerance, Denies fatigue, Denies heat intolerance, Denies polydipsia and Denies polyuria Betito/Lymph Denies easy bleeding and Denies easy bruising Aller/Immun Denies wheezing Physical exam (Primary Care) Tobacco/Smoking Status: Tobacco use Status Tobacco use date assessed 04/06/23 04/06/23 13:00 Patient Tobacco Use Status Former Tobacco user 04/06/23 12:49 Tobacco use type 10/07/21 08:46 e-Cigarette/Vaping Use Never Used 04/06/23 13:00 Depression Screening Interpretation: Negative Thrive Assessment: Date of Thrive Assessment Date Thrive assessed 04/06/23 04/06/23 13:00 Currently or been in a relationship where the following occur: no concerns reported Const Other: General: no acute distress, well developed, alert and awake Nutritional Appearance: well nourished Orientation/consciousness: patient oriented x3 HENMT Head: Yes normocephalic and Yes atraumatic Ears: hearing grossly normal bilaterally and TM's normal bilaterally General nose exam: Normal external nose present and Normal nares present Mouth: Normal oral and palatal mucosa present and moist mucous membranes Teeth and gingiva: dentition normal Throat: Yes oropharynx normal Eyes Pupils: Equal, round and reactive pupils present and Pupil accommodation reflex normal EOM: EOMs intact bilaterally Neck Neck: Yes normal visual inspection, Yes no lymphadenopathy and Yes trachea midline Thyroid: Thyroid normal Carotids: no bruits Lymphatic: no lymphadenopathy noted Chest Chest palpation & inspection: normal inspection of the chest Resp Effort & Inspection: normal respiratory effort Auscultation: clear to auscultation bilaterally Cardio Rate: regular rate Rhythm: regular rhythm Heart sounds: S1 normal heart sound present, S2 normal heart sound present, no gallops, no murmurs and no rubs Bruits: no abdominal aortic bruits and no carotid bruits GI Palpation (GI): No Abdominal aortic bruit present, Soft to palpation, nontender, No hepatosplenomegaly present and No Rebound tenderness present Auscultation: normal bowel sounds General: Yes no CVA tenderness Back/Spine/Pelvis Back: no CVA tenderness Cervical Spine: cervical ROM normal and No Cervical spine tenderness Thoracic/Lumbar Spine: thoraco-lumbar ROM normal, No pain with thoraco-lumbar ROM, No thoracic spinal tenderness and No lumbar spinal tenderness Skin General: warm and dry. Normal skin color. Normal skin turgor Lesions: no lesions Rashes: no rashes Trauma: no lacerations or abrasions Wounds: no wounds Nails: normal Neuro General: patient oriented x3, gait normal and CN's II-XI intact bilaterally Cranial nerves: Yes Equal, round and reactive pupils present Cognition (Neuro): normal cognition Gait exam (Neuro): Normal gait present Motor exam (neuro): 5/5 motor strength present throughout Sensory Exam: No Sensory deficit (Neuro) Deep tendon reflexes (DTR's): Right patellar reflex intensity grade: 2+ and Left patellar reflex intensity grade: 2+ Extrem General: Yes normal to inspection, No edema and No calf tenderness Psych Appearance: grossly normal Affect: normal affect Attitude: cooperative Thought process: Normal thought process present Assessment and Plan Assessment & Plan (1) Normal physical exam: Code(s): Z00.00 - Encounter for general adult medical examination without abnormal findings Plan: No significant physical restrictions limitations noted Continue current treatment regimen Healthy diet and routine exercise encouraged Follow-up with therapist and psychiatrist as planned Encouraged to get fasting labs done, schedule a telehealth visit for labs review in 2-3 weeks, or return sooner with worsening or new symptoms Verbalized understanding and agreed with treatment plan (2) Engages in vaping: Code(s): Z72.89 - Other problems related to lifestyle Plan: She has been vaping constantly since she completely stopped using drugs and drinking alcohol in the past 1 month Instructed on the health risks and complications of vaping encouraged to stop vaping She notes that since she has not using drugs or smoking alcohol, she has to smoke cigarettes or vape, and chose vaping instead Coding Level of Care Code Est Pt Prev Care 18-39y(86016) Diagnoses Normal physical exam Z00.00 Engages in vaping Z72.89
[2023-06-19 15:46] VITALS: BP 112/70; PULSE 82; RESP 13; TEMP 36.3; O2SAT 98; BMI 22.2
== END 2023-06-19 16:16 | disposition home or self-care (01) ==
PROVIDERS: PCP Nurse Practitioner Family; Visit Provider Nurse Practitioner Family
DX: Z00.00 Encounter for general adult medical examination without abnormal findings (principal); F60.3 Borderline personality disorder; Z72.89 Other problems related to lifestyle
CPT/HCPCS: 99395

== ENCOUNTER 2023-06-30 06:04 | Outpatient (REF) | payer MEDICARE, MEDICAID, SELFPAY ==
[2023-06-30 06:19] LABS: MANUAL DIFF FLAG NO
[2023-06-30 08:10] LABS: Appearance Urine Clear; Color Urine Yellow; Glucose Urine UA Negative (Negative); Leukocyte Esterase Urine Negative (Negative); Nitrite Urine Negative (Negative); Specific Gravity - Urine 1.015 (1.005-1.025); UMIC TRIGGER UACC YES; Urine Blood Trace (Negative); Urine Ketones Negative (Negative); Urine Protein Negative (Neg-Trace)
[2023-06-30 08:13] LABS: Bacteria Urine None Seen (None Seen); Hyaline Casts Urine 0-2 /LPF (0-2); RBC Urine 0-2 /HPF (0-2); Squamous Epithelial Cell Urine 0-2 /HPF (0-2); WBC Urine 0-5 /HPF (0-5)
[2023-06-30 08:16] LABS: Basophils Percent Auto 0.6 % (0-2); Eosinophils Absolute Auto 0.2 X10*3/uL (0.0-0.4); Eosinophils Percent Auto 3.6 % (0-4); Hemoglobin 14.6 g/dl (12.0-16.0); Imm Gran Abs Auto 0.05 X10*3/uL (0.00-0.03); Imm Gran Pct Auto 0.8 % (0.0-0.4); Lymphocytes Absolute Auto 0.9 X10*3/uL (1.2-4.9); Lymphocytes Percent Auto 14.7 % (20-40); Mean Corpuscular Hemoglobin 32.6 pg (27.0-33.0); Mean Platelet Volume 10.5 fL (9.4-12.3); Monocytes Absolute Auto 0.4 X10*3/uL (0.1-1.2); Monocytes Percent Auto 6.2 % (2-11); Neutrophils Absolute Auto 4.7 x10*3/uL (2.0-8.3); Neutrophils Percent Auto 74.1 % (45-73); Platelet Count 265 X10*3/uL (160-400); Red Blood Count 4.48 X10*6/uL (4.20-5.50); Red Cell Distribution Width 12.5 % (11.0-16.0); White Blood Count 6.3 X10*3/uL (4.8-10.8)
[2023-06-30 09:10] LABS: Alanine Aminotransferase 16 U/L (0-31); Albumin Level 4.3 g/dL (3.5-5.0); Alkaline Phosphatase 55 U/L (39-117); Anion Gap 11 (12-20); Aspartate Amino Transferase 16 U/L (5-31); Bilirubin Total 0.5 mg/dL (0.0-1.0); Blood Urea Nitrogen 15 mg/dL (9-16); Calcium 9.5 mg/dL (8.4-10.2); Carbon Dioxide 27 mmol/L (22-29); Chloride 107 mmol/L (96-108); Cholesterol 167 mg/dL (<200); Estimated Glomerular Filt Rate > 60; Glucose Fasting 78 mg/dL (60-99); HDL Cholesterol 67 mg/dL (>40); LDL Cholesterol Calculated 89 mg/dL (<100); Sodium 141 mmol/L (135-145); TSH reflex Free T4 1.58 uIU/mL (0.32-4.0); Total Protein 6.8 g/dL (6.5-8.0); Triglycerides 58 mg/dL (<150)
[2023-06-30 09:19] LABS: Syphilis Screen Nonreactive (Nonreactive)
[2023-06-30 09:21] LABS: HBc Num1 0.11 S/CO (0.00-0.79); HBsAGNum1 0.35 S/CO (0.00-0.99); HIV AB/AG Nonreactive (Nonreactive); HIV Num 1 0.06 S/CO (0.00-0.99); Hepatitis B Core Antibody Nonreactive (Nonreactive); Hepatitis B Surface Antigen Negative (Negative); ~HepC Num1 0.21 S/CO (0.00-0.79); ~Hepatitis B Surface Antibody REACTIVE (Nonreactive); ~Hepatitis C Antibody Nonreactive (Nonreactive)
== END 2023-06-30 06:05 | disposition home or self-care (01) ==
LOC: HO.LAB 06:04
PROVIDERS: Visit Provider Nurse Practitioner Family
DX: Z00.00 Encounter for general adult medical examination without abnormal findings (principal); N89.8 Other specified noninflammatory disorders of vagina; E03.9 Hypothyroidism, unspecified
CPT/HCPCS: 36415; 80053; 80061; 81001; 84443; 85025; 86704; 86706; 86780; 86803; 87340; 87389

== ENCOUNTER 2023-07-04 17:30 | Outpatient (AMB) | payer MEDICARE, MEDICAID, SELFPAY ==
--- NOTE | 2023-07-04 13:55 | A.OFFPC_ITS ---
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: No Allergies No Known Allergies Allergy (Verified 07/04/23 17:21) Tobacco use date assessed: 04/06/23 HPI HPI Comments History of Present Illness Details 33 y/o female presents for a telehealth visit for labs review She admits to taking her medications as prescribed without adverse reactions She offers no complaints and denies acute symptoms at this time [facility] Medical History Herpes labialis without complication Surgical History History of wisdom tooth extraction Family History (Updated 06/19/23 @ 15:54 by Ira Perales MA) Father Chronic mental illness Mother No problems noted. Brother In good health Family/Other FH: mental illness Other Substance abuse Social History Housing: Apartment Alcohol intake: former Patient Tobacco Use Status: Former Tobacco user e-Cigarette/Vaping Use: Currently Using Second Hand Smoke Exposure: No Substance Use Type: Marijuana service: No Current occupational status: employed Current occupation: [employer] Current occupational exposures/hazards: No Cognitive needs: No Hearing needs: No Vision needs: No Female Reproductive History Menstrual Age of Menarche: 15 Questionnaire Thrive Questionnaire Date Thrive assessed: 06/19/23 NEIL-7 AMB Questionnaire NEIL-7 Date NEIL - 7 assessed: 06/19/23 Source: Developed by Drs. Fracisco Mauro, Lalita Wilkes, Jacky Chavez and colleagues, with an educational chris from [employer]. Review of Systems Const Details: Const Denies chills, Denies fatigue, Denies fever(s), Denies headache(s) and Denies weakness ENT Denies dizziness and Denies headache(s) Card Denies chest pain, Denies lightheadedness, Denies dyspnea and Denies other (Palpitations) Resp Denies cough, Denies dyspnea, Denies wheezing and Denies other ( shortness of breath) GI Denies abdominal pain, Denies melena, Denies hematochezia, Denies change in bowel habits, Denies dyspepsia and Denies nausea Denies hematuria and Denies dysuria Musc Denies abnormal gait, Denies myalgias, Denies arthralgias, Denies numbness and Denies tingling Skin/Breast Denies rash, Denies unusual bruising and Denies wounds Neuro Denies abnormal gait, Denies dizziness, Denies headache(s), Denies memory loss, Denies numbness, Denies Sensory deficit (Neuro), Denies tingling and Denies weakness Psych Denies anxiety, Denies depression, Denies memory loss Endo Denies cold intolerance, Denies fatigue, Denies heat intolerance, Denies polydipsia and Denies polyuria Aller/Immun Denies wheezing Physical exam (Primary Care) Tobacco/Smoking Status: Tobacco use Status Tobacco use date assessed 04/06/23 07/04/23 13:55 Patient Tobacco Use Status Former Tobacco user 07/04/23 13:55 Tobacco use type 10/07/21 08:46 e-Cigarette/Vaping Use Currently Using 07/04/23 13:55 Thrive Assessment: Date of Thrive Assessment Date Thrive assessed 06/19/23 07/04/23 13:55 Const Other: Telehealth visit. No physical exam Telehealth Telehealth Location of provider rendering services: practice address Location of patient: address on file Patient Identification confirmed using: Name, : Yes Telehealth method: voice only Patient verbally consented to treatment: Yes Patient verbally consented to billing insurance company: Yes Patient informed of any privacy concerns related to visit: Yes Assessment and Plan Assessment & Plan (1) Hypothyroidism (acquired): Code(s): E03.9 - Hypothyroidism, unspecified Plan: Recent lab results reviewed with the patient Unremarkable findings Advised to take her meds as prescribed She is unsure whether or not her psychiatrist is monitoring her TSH level. Will recheck thyroid levels in 6 months Encouraged to get blood work done before next visit Follow-up psychiatrist as planned Return in 6 months or return sooner with symptoms or concerns Verbalized understanding and agreed with treatment plan Orders: Orders TSH reflex Free T4 6 Months E03.9 - Hypothyroidism, unspecified Coding Level of Care Code Tele Est Pt Level 2 (22110) Diagnoses Hypothyroidism (acquired) E03.9 Time Spent (min) 10
== END 2023-07-04 17:55 | disposition home or self-care (01) ==
LOC: HO.HMGFM 17:30
PROVIDERS: Visit Provider Nurse Practitioner Family
DX: E03.9 Hypothyroidism, unspecified (principal)
CPT/HCPCS: 99441

== ENCOUNTER 2023-09-08 13:08 | Outpatient (AMB) | payer MEDICARE, MEDICAID, SELFPAY ==
[2023-09-08 13:10] VITALS: BP 94/60; BMI 24.2
--- NOTE | 2023-09-08 13:10 | MHC.OFFVIS ---
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 She has been spotting more with the Kyleena IUD in it is making her nervous that it is less effective it was inserted per records 02/24/2020. Patient says that she has been on very many methods of control since she was about 19 including Depo Kyleena maybe the Mirena the Nexplanon control pills she was on even with taking the control pills at time and she is bipolar and does not do well when she gets her. And sees having the Kyleena in as harm reduction for her. She is on many psych meds that she gets through [facility] by a Dr. Valle. She is contemplating future but she has not in a place for that now and just broke up with somebody she has always been very very sexually active and self describes as a sex addict. She is sober now and feels like she is doing well. She did just break-up with somebody she did want a test just to be sure she is concerned that the spotting indicated less effectiveness of the Kyleena. [facility] Medical History Herpes labialis without complication Surgical History History of wisdom tooth extraction Family History (Updated 09/08/23 @ 13:14 by SHIREEN Soliman) Father Chronic mental illness Mother Ovarian cancer Brother In good health Family/Other FH: mental illness Other Substance abuse Social History Housing: Apartment Alcohol intake: former Patient Tobacco Use Status: Former Tobacco user e-Cigarette/Vaping Use: Currently Using Second Hand Smoke Exposure: No Substance Use Type: Marijuana service: No Current occupational status: employed Current occupation: [employer] Current occupational exposures/hazards: No Cognitive needs: No Hearing needs: No Vision needs: No Female Reproductive History Menstrual Age of Menarche: 15 control method: progestin IUCD Total pregnancies: 0 Date of last pap smear: 07/08/22 (negative) Physical Exam Vital Signs: Last Vital Signs BP 94/60 09/08/23 13:10 BMI result Body Mass Index 24.2 Const Other: Multiple tattoos and piercings. General: healthy appearing, comfortable, no acute distress, well developed and alert Nutritional Appearance: average body habitus Orientation/consciousness: patient oriented x3 Limitations: no limitations HEENT Head: Yes normocephalic Neck Neck: Yes normal visual inspection Thyroid: Thyroid normal Chest Chest palpation & inspection: normal inspection of the chest Breast/axilla inspection: normal inspection of the breasts and normal inspection of the axillae Breast/axilla palpation: normal palpation of the breasts and normal palpation of the axillae Resp Effort & Inspection: normal respiratory effort GI Inspection: Yes normal to inspection, No Abdominal wall edema and No distended Palpation (GI): Soft to palpation and nontender Other: External exam within normal limits vagina pink and moist. Cervix is extremely posterior nulliparous pink smooth healthy appearing with normal healthy appearing mucus Kyleena string visible in os uterus small anteverted mobile nontender very good tone. General: Yes bladder normal to palpation External Female Exam: normal external appearance and normal appearance of the urethra Speculum Exam - Vagina: normal appearance of the vagina, normal palpation and normal vaginal discharge Speculum Exam - Cervix: normal appearance of the cervix, normal palpation and nontender Bimanual exam- vagina & uterus: normal bimanual exam, normal palpation, uterine size normal, bladder normal to palpation, consistency normal, normal palpation, uterine mobility normal, uterine shape normal, No Cervical tenderness present, non-tender and no cervical motion tenderness Bimanual Exam- Adnexa, other: normal adnexae, no masses, normal and No adnexal tenderness Neuro General: patient oriented x3 Results Reviewed Results Reviewed: Name: Geneva Barrera Age/Sex: 32/F Attending: Michelle Boyce CNM : 1990 Submitted by: Michelle Boyce CNM Copies to: Pam Barrera LABOR DELIVERY RN MR #: [id number] Status: DEP REF Collected: 07/07/22 Location: [facility] Received: 07/08/22 Interpretation Satisfactory for evaluation. Negative for intraepithelial lesion or malignancy. HPV mRNA E6/E7: NOT DETECTED This assay detects E6/E7 viral messenger RNA (mRNA) from 14 high-risk HPV types (16, 18, 31, 33, 35, 39, 45, 51, 52, 56, 58, 59, 66, 68) HPV testing performed by [facility], [place], [place]. See reference laboratory portion of the EMR for entire report. Clinical Information LMP: Unknown Previous PAP test: 2018, WNL Material Received ThinPrep-Cervical Copies To Michelle Boyce [address] Harris [address] [place] [address] [phone] Pam Barrera LABOR DELIVERY RN [address] [place] [address] Electronically Signed By: Shira Topete 07/18/22 [id number] The Pap Test is a screening procedure with the inherent possibility of both false negative and false positive results. Results should be interpreted in the context of historic and current clinical findings. Reliability of the Pap Test is enhanced by performing the test on a regular repetitive basis. Patient: Geneva Barrera Age/Sex: 32/F MR#: [id number] Page 1 of 1 Assessment & Plan Assessment & Plan (1) Encounter for routine checking of intrauterine contraceptive device (IUD): Comment: Has Kyleena IUD that was inserted 02/24/2020 -see notes. Code(s): Z30.431 - Encounter for routine checking of intrauterine contraceptive device Category: Medical (2) Cervical cancer screening: Comment: 07/07/2022 Pap is negative with negative HPV Code(s): Z12.4 - Encounter for screening for malignant neoplasm of cervix Category: Medical (3) Well woman exam with routine gynecological exam: Code(s): Z01.419 - Encounter for gynecological examination (general) (routine) without abnormal findings Category: Medical (4) Bipolar disorder: Code(s): F31.9 - Bipolar disorder, unspecified Category: Medical Plan -----Discussed in this visit the following: healthy balanced diet, regular and consistent exercise, getting recommended health screens, doing the best she can for her particular health concerns, kegel exercises, pap smear screening and followup recommendations, mammography screening and SBE, normal changes in cycles in her life stage--- . Offered serum blood work for STI screening she declines she is thinks she is okay. Testing done for gonorrhea chlamydia trichomoniasis Gardnerella and Della. Pap is deferred as it was negative last year. Much of the visit was spent discussing the Kyleena I looked up the most recent data from the Kyleena website in terms of spotting and eating side effects with the declining amount of levonorgestrel that is released over time and gave her the data she looked at it and decided she did not need to keep it discussed that it should be replaced at the end of 5 years. She is thinking about future but she also had voiced the concern about that she had been suicidal with her menses in the past fears returning that though she is wondering if she needs to get into a better practice with meditation or some other coping strategies so that she could transition because she knows that she would need be off the Kyleena for some period of time in order to get and she and I had discussed the variable length of time in return to fertility as well. I suggested that whenever she is in a place where she would like to transition from the Kyleena to control pills as the interim method but to be in a place where if she got by missing a pill or something it would be okay with her the that might be a good time to transition so it will be up to her when she wishes to do that in any case the Kyleena she has now should be okay until February of 2025. Additionally she may want to start a multivitamin with folic acid some time as she is approaching consideration childbearing. In addition it would be great to have a conversation with her psych med provider about whether not it was okay to conceive on the meds she is on or did some dosages need to be adjusted or substitutions made so this would be all in way of planning for openness to in the future.. Also discussed changes in fertility and increased risks of genetic challenges as 1 gets older as well. Orders: Orders Bacterial Vaginosis Panel Today Z20.2 - Contact with and (suspected) exposure to infections with a predominantly sexual mode of transmission CT NG by PCR Today Z20.2 - Contact with and (suspected) exposure to infections with a predominantly sexual mode of transmission Coding Level of Care Code Est Pt Prev Care 18-39y(17749) Diagnoses Encounter for routine checking of intrauterine contraceptive device (IUD) Z30.431 Cervical cancer screening Z12.4 Well woman exam with routine gynecological exam Z01.419 Bipolar disorder F31.9
== END 2023-09-08 13:56 | disposition home or self-care (01) ==
LOC: HO.HWSM 13:08
PROVIDERS: Visit Provider Advanced Practice Midwife
DX: Z91.89 Other specified personal risk factors, not elsewhere classified (principal); F31.9 Bipolar disorder, unspecified
CPT/HCPCS: G0101

== ENCOUNTER 2023-09-08 13:08 | Outpatient (REF) | payer MEDICARE, MEDICAID, SELFPAY ==
[2023-09-09 11:01] LABS: Bacterial Vaginosis PCR NEGATIVE (Negative); Candida Group PCR NOT DETECTED (Not Detect); Candida glab krusei PCR NOT DETECTED (Not Detect); Trichomonas vaginalis PCR NOT DETECTED (Not Detect)
[2023-09-09 11:05] LABS: CT PCR NOT DETECTED (Not Detect.); NG PCR NOT DETECTED (Not Detect.)
== END 2023-09-08 13:09 | disposition home or self-care (01) ==
LOC: HO.LNP 13:08
PROVIDERS: Visit Provider Advanced Practice Midwife
DX: Z01.419 Encounter for gynecological examination (general) (routine) without abnormal findings (principal); Z30.431 Encounter for routine checking of intrauterine contraceptive device; Z20.2 Contact with and (suspected) exposure to infections with a predominantly sexual mode of transmission
CPT/HCPCS: 0352U; 0353U; G0101

== ENCOUNTER 2024-02-22 07:28 | Outpatient (REF) | payer MEDICARE, MEDICAID, SELFPAY ==
[2024-02-22 09:33] LABS: Appearance Urine Clear; Color Urine Yellow; Glucose Urine UA Negative (Negative); Leukocyte Esterase Urine Trace (Negative); Nitrite Urine Negative (Negative); Specific Gravity - Urine 1.015 (1.005-1.025); UMIC TRIGGER UACC YES; Urine Blood Negative (Negative); Urine Ketones Negative (Negative); Urine Protein Negative (Neg-Trace)
[2024-02-22 09:39] LABS: Bacteria Urine None Seen (None Seen); Hyaline Casts Urine 0-2 /LPF (0-2); RBC Urine 0-2 /HPF (0-2); Squamous Epithelial Cell Urine 0-2 /HPF (0-2); WBC Urine 0-5 /HPF (0-5)
[2024-02-22 10:10] LABS: TSH reflex Free T4 4.39 uIU/mL (0.32-4.0)
[2024-02-22 10:47] LABS: Free T4 (Free Thyroxine) 0.83 ng/dL (0.71-1.85)
== END 2024-02-22 07:29 | disposition home or self-care (01) ==
LOC: HO.LAB 07:28
PROVIDERS: Absent Provider Psychiatry & Neurology Psychiatry; PCP Nurse Practitioner Family; Visit Provider Nurse Practitioner Family
DX: E03.9 Hypothyroidism, unspecified (principal)
CPT/HCPCS: 36415; 81001; 84439; 84443

== ENCOUNTER 2024-04-18 09:15 | Outpatient (REF) | payer MEDICARE, MEDICAID, SELFPAY ==
--- OUTSIDE RECORDS SUMMARY | 2024-04-18 09:32 | XMS_ITS | Data Portability ---
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 Not available 05/10/2022 16:25:10 Plan of Treatment Reminders Order Date Submit Date Provider Last Modified By Organization Details Last Modified Time Details Appointments None record ed. Lab None record ed. Referral None record ed. Procedures None record ed. Surgeries None record ed. Imaging None record ed. Medication Orders None record ed. Patient TargetsNo targets recorded. Patient Instructions Encounter Date Encounter Id Patient Instructions Last Modified By Organization Details Last Modified Time 05/10/2022 [id number] cough: care instructions Not available 05/10/2022 16:20:58 Add Mucinex for your cough. Complete course of prednisone Not available 05/10/2022 16:20:58 Reason for Referral None Reported. Problems Name Problem SNOMED Code Status Onset Date Resolution Date Notes Provider Name and Address Organization Details Recorded Time Disorder of thyroid gland 26198177 Active 023 [facility] 16:10:20 Problem Notes None recorded. Medical Equipment None Reported. Allergies No known drug allergies Medications Name Sig Start Date Stop Date Status Note LastModified by Organization Details LastModified Time valacyclovi r 1 gram tablet TAKE 1 TABLET BY MOUTH EVERY DAY active Not Available Not Available No t Available tretinoin 0.025 % topical cream PLEASE SEE ATTACHED FOR DETAILED DIRECTION S 05/10 completed Not Available Not Available Not Available naltrexone 50 mg tablet TAKE 1 TABLET BY MOUTH EVERY DAY 05/10 completed Not Available Not Available Not Available lithium carbonate ER 450 mg tablet,exte nded release TAKE 2 TABLETS BY MOUTH EVERY EVENING active Not Available Not Available No t Available levothyroxi ne 75 mcg tablet TAKE 1 TABLET BY MOUTH DAILY active Not Available Not Available No t Available clindamycin 1 % lotion APPLY SMALL AMOUNT TO FACE ONCE DAILY NEEDED FOR SPOT TREATMENT 05/10 completed Not Available Not Available Not Available bupropion HCl XL 300 mg 24 hr tablet, extended release TAKE 1 TABLET BY MOUTH EVERY DAY IN THE MORNING active Not Available Not Available No t Available bupropion HCl XL 150 mg 24 hr tablet, extended release TAKE 1 TABLET BY MOUTH EVERY MORNING TOTAL DOSAGE IS 450 MG DAILY (300 MG PLUS 150 MG). active Not Available Not Available No t Available Latuda 40 mg tablet TAKE 1 TABLET BY MOUTH ONCE A DAY WITH 80MG TABLET active Not Available Not Available No t Available Latuda 80 mg tablet TAKE 1 TABLET BY MOUTH EVERY DAY active Not Available Not Available No t Available QuickVue At-Home COVID-19 Test kit REFER TO MANUFACTU RER INSTRUCTI ONS INCLUDED IN PACKAGING active Not Available Not Available No t Available Vitals Date Recorded Body height Body mass index (BMI) Body weight Respiratory rate Oxygen saturation Oxygen saturation in Arterial blood by Pulse oximetry Heart rate Body temperature Systolic blood pressure Diastolic blood pressure Provider Name and Address Organization Details Last Updated DateTime 3 172.72 cm 22.8 kg/m2 49710.8 6 g 18 /min 100 % 100 % 82 /min 98.2 [degF] 118 mm[Hg] 73 mm[Hg] FIDEL CHOI - [facility] 3 16:12:11 Social History Question Answer Notes LastModified by Organizat ion Details LastModified Time Tobacco Smoking Status Former Smoker FIDEL moore [place] - [facility] 05/10/2022 16:10:55 What Is Your Level Of Alcohol Consumption? None Information not available 05/10/2022 Which Illicit Or Recreational Drugs Have You Used? Marijuana Information not available 05/10/2022 When Did You Quit Smoking? 1-5yearssince lastcigarette 11 Days Ago Information not available 05/10/2022 Do You Use Any Illicit Or Recreational Drugs? Yes Information not available 05/10/2022 Have You Recently Traveled Abroad? No Information not available 05/10/2022 Do You Or Have You Ever Used Any Other Forms Of Tobacco Or Nicotine? No Information not available 05/10/2022 Sex: Unknown Functional Status None recorded. Mental Status None recorded. Family History Relationship Description Onset Age of this Age Resolved Age Notes LastModified by Organization Details LastModified Time Father No current problems or disability Not available 05/10 16:10:26 Mother No current problems or disability Not available 05/10 16:10:26 Medical History No medical history recorded. Gynecological HistoryNo gynecological history recorded. Obstetrics History GPAL:G 0 P 0 0 0 0 Immunizations Vaccine Type Date Status Note Provider Nam e and Address Organization Details Recorded Time Influenza, split virus, quadrivalent, preservative 8 completed FIDEL DEPINTO null, PA - [facility] 05/10/2022 16:09:00 MMR 8 completed FIDEL DEPINTO null, PA - [facility] 05/10/2022 16:09:00 COVID-19, mRNA, LNP-S, PF, 100 mcg/0.5mL dose or 50 mcg/0.25mL dose 1 completed FIDEL DEPINTO null, PA - [facility] 05/10/2022 16:09:00 COVID-19, mRNA, LNP-S, PF, 100 mcg/0.5mL dose or 50 mcg/0.25mL dose 1 completed FIDEL DEPINTO null, PA - [facility] 05/10/2022 16:09:00 Tdap 8 completed FIDEL DEPINTO null, PA - [facility] 05/10/2022 16:09:00 HPV, unspecified formulation 7 completed FIDEL DEPINTO null, PA - [facility] 05/10/2022 16:09:00 Hep B, adult 8 completed FIDEL DEPINTO null, PA - [facility] 05/10/2022 16:09:00 Past Encounters Encounter ID Performer Location Encounter Start Date Encounter Closed Date Diagnosis/Indication Diagnosis SNOMED-CT Code Diagnosis ICD10 Code Diagnosis Note [id number] [address] [facility], [place] [address] 02/24/2020 19:42:04 02/25/2020 07:50:20 [id number] [facility] [place] [address] 06/23/2020 09:17:37 06/23/2020 10:15:48 [id number] [id number] [facility] [place] [address] 07/08/2020 15:32:35 07/08/2020 16:24:21 [id number] [address] [facility] [place] [address] 06/05/2020 12:31:03 06/05/2020 12:57:22 [id number] [id number] [facility] [place] [address] 08/19/2020 12:48:04 08/19/2020 13:28:01 [id number] [id number] [facility] [place] [address] 01/06/2021 09:16:50 01/06/2021 10:47:38 [id number] [address] [facility] [place] [address] 12/05/2020 09:46:20 12/05/2020 12:50:47 [id number] [address] [facility] [place] [address] 07/20/2020 12:35:33 07/20/2020 14:25:51 [id number] [address] [facility], [place] [address] 05/29/2020 14:40:35 05/29/2020 17:50:03 [id number] Susy Patiño DO [address] [place] [address] 05/10/2022 15:42:00 05/10/2022 16:26:41 Postviral cough [id number] R05.3 Health Concerns Section Related Observation LastModified by Organization Detai ls LastModified Time None Recorded Concern Status LastModified by Organization Details LastModified Time None Recorded Advance Directives Directive None Recorded Payers Encounter Date Sequence Insurance Name Policy Number Policy Gage Covered Member ID Gage Member ID Guarantor Name 07/20/2020 1 [facility] (MEDICAID HMO) [place] [id number] [place] 08/19/2020 1 [facility] (MEDICAID HMO) [employer] [place] [id number] [place] 12/05/2020 1 [facility] (MEDICAID HMO) [employer] V [place] [id number] [place] 01/06/2021 1 [facility] (MEDICAID HMO) [place] V [place] [id number] [place] 05/10/2022 1 [place] V [place] [id number] [place] 05/10/2022 2 [place] [facility] [place] V [place] [id number] [place] Bisbing Notes Date Note Type Note Provider Name and Address Organization Details Recorded Time 05/10/2022 text/html URI symptoms started 5-6 days ago: fever, cough, body aches, chills. Diagnosed with flu 3 days ago. Symptoms resolved. Cough is improving. On prednisone. No further body aches or fever x 2 days. 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 Susy Patiño DO [address] [place], [phone], [place] - [facility] 05/10/2022 16:25:34 OBGyn Episode No OBEpisode recorded.
[2024-04-18 09:46] LABS: Estimated Average Glucose 82 mg/dL; Hemoglobin A1c % 4.5 % (<6.0); Total Hemoglobin (HGBA1C) 3639.3767 umol/L
[2024-04-18 10:51] LABS: Blood Urea Nitrogen 17 mg/dL (9-16); Cholesterol 149 mg/dL (<200); Estimated Glomerular Filt Rate > 60; HDL Cholesterol 59 mg/dL (>40); LDL Cholesterol Calculated 79 mg/dL (<100); Triglycerides 59 mg/dL (<150)
[2024-04-18 12:17] LABS: Lithium 0.55 mmol/L (0.60-1.20)
== END 2024-04-18 09:16 | disposition home or self-care (01) ==
LOC: HO.LAB 09:15
PROVIDERS: PCP Nurse Practitioner Family; Visit Provider Psychiatry & Neurology Psychiatry
DX: Z79.899 Other long term (current) drug therapy (principal)
CPT/HCPCS: 36415; 80061; 80178; 82565; 83036; 84520

== ENCOUNTER 2024-05-22 14:55 | Outpatient (AMB) | payer MEDICARE, MEDICAID, SELFPAY ==
--- NOTE | 2024-05-22 14:56 | MHC.PC.OV ---
Vital Signs 05/22/24 15:05 Height 5 ft 8 in Weight 162 lb BMI 24.6 BP 111/64 Blood Pressure Location Rt brachial Position Sitting Respiration 16 Pulse 73 Pulse Source Pulse Oximeter Temp 98.8 F Temp Source Oral Pulse Oximetry (%) 99 Oxygen Delivery Method Room Air Intake Visit Reasons: MEDICATION CHANGE nadir 05/15 Intake Note: patient here for medication change Call Out Operator Required: No Is last menstrual period known: No Post menopausal: No Patient : No Allergies No Known Allergies Allergy (Verified 05/22/24 15:23) Medication List - Last Reconciled 05/22/24 by Marilyn Daniels CNP bupropion HCl XL 150 mg PO QAM bupropion HCl XL 300 mg PO QAM levonorgestrel 1 device intrauterine ONCE levothyroxine 75 mcg PO DAILY lithium carbonate 900 mg PO BEDTIME lurasidone 80 mg PO QPM lurasidone 20 mg PO QPM montelukast (Singulair) 10 mg PO BEDTIME valacyclovir 1,000 mg PO DAILY 90 days Ventolin HFA 90 mcg/actuation (albuterol sulfate) 2 puffs inhalation Q6H PRN 1 month NS Tobacco use date assessed: 05/22/24 Dental Screening Dental Screen Date: 05/22/24 Did you have a dental visit in the last 12 months?: Yes Did you have a dental problem in the last 6 months where you did not have access to dental care?: No Was dental information given to patient?: Patient has dentist HPI HPI Comments History of Present Illness Details 34-year-old female presents for hypothyroidism follow-up. She admits to taking her medications as prescribed without adverse reactions. She notes controlled anxiety and depressive symptoms. She is followed by [facility] psychiatrist monthly and a therapist weekly. She notes that she the skin tanning and request dermatology referral for skin checks. She offers no complaints and denies acute symptoms at this time. She did not get TSH/T4 blood work done. [facility] Medical History Herpes labialis without complication Surgical History History of wisdom tooth extraction Family History (Updated 09/08/23 @ 13:14 by SHIREEN Soliman) Father Chronic mental illness Mother Ovarian cancer Brother In good health Family/Other FH: mental illness Other Substance abuse Social History Housing: Apartment Alcohol intake: former Patient Tobacco Use Status: Former Tobacco user e-Cigarette/Vaping Use: Currently Using Second Hand Smoke Exposure: No Substance Use Type: Marijuana service: No Current occupational status: employed Current occupation: [employer] Current occupational exposures/hazards: No Cognitive needs: No Hearing needs: No Vision needs: No Female Reproductive History Menstrual Age of Menarche: 15 Questionnaire PHQ-9 Over the last 2 weeks, how often have you been bothered by any of the following problems? 1. Little interest or pleasure in doing things: not at all 2. Feeling down, depressed, or hopeless: not at all 3. Trouble falling or staying asleep, or sleeping too much: not at all 4. Feeling tired or having little energy: not at all 5. Poor appetite or overeating: not at all 6. Feeling bad about yourself - or that you are a failure or have let yourself or your family down: not at all 7. Trouble concentrating on things, such as reading the newspaper or watching television: not at all 8. Moving or speaking so slowly that other people could have noticed. Or the opposite - being so fidgety or restless that you have been moving around a lot more than usual: not at all 9. Thoughts that you would be better off or of hurting yourself in some way: not at all Total score: 0 Depression Screening Interpretation: Negative Depression Screening Done: Yes 14189 - PHQ-9 Billing: Yes Source: Developed by Drs. Fracisco Mauro, Lalita Wilkes, Jacky Chavez and colleagues, with an educational chris from [employer]. Thrive Questionnaire Date Thrive assessed: 05/22/24 I am a: Patient What is your living situation today?: I have a steady place to live Within the past 12 months, did the food you bought not last and you didn't have the money to get more?: Never true Within the past 12 months, did you worry whether your food would run out before you got money to buy more?: Never true Do you have trouble paying for medicines?: No Do you have trouble getting transportation to medical appointments?: No Do you have trouble paying your heating and electricity bill?: No Do you have trouble taking care of your child, family member or friend?: No Do you have trouble with day-to-day activities such as bathing, preparing meals, shopping, managing finances, etc.?: No Are you currently unemployed and looking for a job?: No Are you interested in more education?: No Please select the resources that you would like help with: None Currently or been in a relationship where the following occur: No concerns reported THRIVE Score: 0 AUDIT C Alcohol Use Questionnaire (AUDIT-C) 1. How often do you have a drink containing alcohol?: Never Total Score: 0 NEIL-7 AMB Questionnaire NEIL-7 Date NEIL - 7 assessed: 05/22/24 Feeling nervous, anxious, or on edge: 0 = Not at all Not being able to stop or control worryin = Not at all Worrying too much about different things: 0 = Not at all Trouble relaxin = Not at all Being so restless that it is hard to sit still: 0 = Not at all Becoming easily annoyed or irritable: 0 = Not at all Feeling afraid as if something awful might happen: 0 = Not at all Total NEIL-7 score (0-4 normal; 5-9 mild; 10-14 moderate; 15-21 severe): 0 Source: Developed by Drs. Fracisco Mauro, Lalita Wilkes, Jacky Chavez and colleagues, with an educational chris from [employer]. NEIL-7 Assessment Billing NEIL-7 Assessment Tool: NEIL-7 Assessment 82138 Review of Systems Const Details: Const Denies chills, Denies fatigue, Denies fever(s), Denies headache(s) and Denies weakness ENT Denies dizziness and Denies headache(s) Card Denies chest pain, Denies lightheadedness, Denies dyspnea and Denies other (Palpitations) Resp Denies cough, Denies dyspnea, Denies wheezing and Denies other ( shortness of breath) GI Denies abdominal pain, Denies melena, Denies hematochezia, Denies change in bowel habits, Denies dyspepsia and Denies nausea Denies hematuria and Denies dysuria Musc Denies abnormal gait, Denies myalgias, Denies arthralgias, Denies numbness and Denies tingling Skin/Breast Denies rash, Denies unusual bruising and Denies wounds Neuro Denies abnormal gait, Denies dizziness, Denies headache(s), Denies memory loss, Denies numbness, Denies Sensory deficit (Neuro), Denies tingling and Denies weakness Psych Denies anxiety, Denies depression, Denies memory loss Endo Denies cold intolerance, Denies fatigue, Denies heat intolerance, Denies polydipsia and Denies polyuria Aller/Immun Denies wheezing Physical exam (Primary Care) Vital Signs: Last Vital Signs Temp 98.8 F 05/22/24 15:05 Pulse 73 05/22/24 15:05 Resp 16 05/22/24 15:05 BP 111/64 05/22/24 15:05 Pulse Ox 99 05/22/24 15:05 Oxygen Delivery Method Room Air 05/22/24 15:05 BMI result Body Mass Index 24.6 Tobacco/Smoking Status: Tobacco use Status Tobacco use date assessed 05/22/24 05/22/24 15:07 Patient Tobacco Use Status Former Tobacco user 05/22/24 15:00 Tobacco use type 10/07/21 08:46 e-Cigarette/Vaping Use Currently Using 05/22/24 15:00 PHQ-9: PHQ-9 Score PHQ-9: Total score 0 05/22/24 15:07 Depression Screening Interpretation: Negative Thrive Assessment: Date of Thrive Assessment Date Thrive assessed 05/22/24 05/22/24 15:07 Currently or been in a relationship where the following occur: No concerns reported Const Other: General: no acute distress and well developed Nutritional Appearance: well nourished Orientation/consciousness: patient oriented x3 [facility] Head: Yes normocephalic and Yes atraumatic Eyes General: appearance normal, both eyes and all related structures Pupils: Equal, round and reactive pupils present EOM: EOMs intact bilaterally Resp Effort & Inspection: normal respiratory effort Auscultation: clear to auscultation bilaterally Cardio Rate: regular rate Rhythm: regular rhythm Heart sounds: S1 normal heart sound present, S2 normal heart sound present, no gallops, no murmurs and no rubs GI Palpation (GI): No Abdominal aortic bruit present, Soft to palpation, nontender, No hepatosplenomegaly present and No Rebound tenderness present Auscultation: normal bowel sounds General: Yes no CVA tenderness Back/Spine/Pelvis Back: no CVA tenderness Cervical Spine: cervical ROM normal and No Cervical spine tenderness Thoracic/Lumbar Spine: thoraco-lumbar ROM normal, No pain with thoraco-lumbar ROM, No thoracic spinal tenderness and No lumbar spinal tenderness Extrem General: Yes normal to inspection, No edema and No calf tenderness Skin General: warm and dry. Normal skin color. Normal skin turgor Neuro General: patient oriented x3, gait normal and no focal neuro deficit Cranial nerves: Yes Equal, round and reactive pupils present Cognition (Neuro): normal cognition Gait exam (Neuro): Normal gait present Sensory Exam: No Sensory deficit (Neuro) Psych Appearance: grossly normal Affect: normal affect Attitude: cooperative Thought process: Normal thought process present Coding Level of Care Code Est Pt Level 3 (38393) Diagnoses Hypothyroidism (acquired) E03.9 Laboratory tests ordered as part of a complete physical exam (CPE) Z00.00 Additional Codes NEIL-7 Assessment Billing - NEIL-7 Assessment Tool: NEIL-7 Assessment 79638 ([id number]) PHQ-9 - 79039 - PHQ-9 Billing: Yes ([id number]) Assessment & Plan Assessment & Plan (1) Hypothyroidism (acquired): Code(s): E03.9 - Hypothyroidism, unspecified Category: Medical Plan: Recent TSH were slightly elevated 3 months ago, 4.39, free T4 was normal, 0.83. She did not get blood work done for this visit. Encouraged to get blood work done today. Will review results and make changes as needed. Continue current treatment regimen. Perform fasting blood work 2-3 days before next visit. Follow-up in 1 month for an extended physical exam and labs review or sooner with symptoms or concerns. Verbalized understanding and agreed with the plan. (2) Laboratory tests ordered as part of a complete physical exam (CPE): Code(s): Z00.00 - Encounter for general adult medical examination without abnormal findings Category: Medical Plan: Fasting labs ordered as part of a complete physical exam. Advised to fast for at least 10 hours before getting labs drawn. May drink water Verbalized understanding and agreed with treatment plan. Orders: Orders Comprehensive [place]. Panel Fast 1 Month Z00.00 - Encounter for general adult medical examination without abnormal findings UA CC w/rflx Micro + Cult 1 Month Z00.00 - Encounter for general adult medical examination without abnormal findings Complete Blood Count Auto Diff 1 Month Z00.00 - Encounter for general adult medical examination without abnormal findings
[2024-05-22 15:05] VITALS: BP 111/64; PULSE 73; RESP 16; TEMP 37.1; O2SAT 99; BMI 24.6
--- OUTSIDE RECORDS SUMMARY | 2024-05-22 16:08 | XMS_ITS | Data Portability ---
Author Organization [facility] [id number] Address [address] [place] [id number] Care Team Providers Care Adjunct English Instructor Name Role Phone CHANDANA GLEZ Primary Care Provider [phone] Assessment Encounter Date Assessment Date Assessment LastModified [...] By Organization Details Last Modified Time 05/10/2022 [id number] cough: care instructions Not available 05/10/2022 16:20:58 Add Mucinex for your cough. Complete course of prednisone Not available 05/10/2022 16:20:58 Reason for Referral None Reported. Problems Name Problem SNOMED Code Status Onset Date Resolution Date Notes Provider Name and Address Organization Details Recorded Time Disorder of thyroid gland [id number] Active 023 [facility] 16:10:20 Problem [...] height Body mass index (BMI) Body weight Pain severity - 0-10 verbal numeric rating [Score] - Reported Respiratory rate Oxygen saturation Oxygen saturation in Arterial blood by Pulse oximetry Heart rate Body temperature Systolic blood pressure Diastolic blood pressure Provider Name and Address Organization Details Last Updated DateTime 3 172.72 cm 22.8 kg/m2 24179.8 6 g 0 18 /min 100 % 100 % 82 /min 98.2 [degF] 118 mm[Hg] 73 mm[Hg] FIDEL CHOI - [facility] 3 16:12:11 Social History Question Answer Notes LastModified by Organizat ion Details LastModified Time Tobacco Smoking Status Former Smoker STEPH Ch[facility] 05/10/2022 16:10:55 What Is Your [...] SNOMED-CT Code Diagnosis ICD10 Code Diagnosis Note [id number] [address] [facility] [place] [address] 02/24/2020 19:42:04 02/25/2020 07:50:20 [id number] [address] [facility] [place] [address] 06/23/2020 09:17:37 06/23/2020 10:15:48 [id number] [address] [facility], [place] [address] 07/08/2020 15:32:35 07/08/2020 16:24:21 [id number] [address] [facility], [place] [address] 06/05/2020 12:31:03 06/05/2020 12:57:22 [id number] [address] [facility] [place] [address] 08/19/2020 12:48:04 08/19/2020 13:28:01 [id number] [address] [facility] [place] [address] 01/06/2021 09:16:50 01/06/2021 10:47:38 [id number] [address] [facility] [place] [address] 12/05/2020 09:46:20 12/05/2020 12:50:47 [id number] [address] [facility] [place] [address] 07/20/2020 12:35:33 07/20/2020 14:25:51 [id number] [address] [facility] [place] [address] 05/29/2020 14:40:35 05/29/2020 17:50:03 [id number] Susy Patiño DO [address] [place] [address] 05/10/2022 15:42:00 05/10/2022 16:26:41 Postviral cough [id number] R05.3 Health Concerns Section Related Observation LastModified by Organization Detai ls LastModified Time None Recorded Concern Status LastModified by Organization Details LastModified Time None Recorded Advance Directives Directive None Recorded Payers Encounter Date Sequence Insurance Name Policy Number Policy Gage Covered Member ID Gage Member ID Guarantor Name 07/20/2020 1 [facility] HEALTH NET [facility]AN (MEDICAID HMO) [employer] [place] [id number] [place] 08/19/2020 1 [facility] HEALTH NET PLAN (MEDICAID HMO) [employer] [place] [id number] [place] 12/05/2020 1 [facility] (MEDICAID HMO) [employer] [place] [id number] [place] 01/06/2021 1 [facility] NET [facility]AN (MEDICAID HMO) [employer] [place] [id number] [place] 05/10/2022 1 [place] [employer] [place] [id number] [place] 05/10/2022 2 [place] [facility] [place] [id number] [place] Notes Date Note Type Note Provider Name and Address Organization Details Recorded Time 05/10/2022 text/html URI symptoms started 5-6 days ago: fever, cough, body aches, chills. Diagnosed with flu 3 days ago. Symptoms resolved. Cough is improving. On prednisone. No further body aches or fever x 2 days. 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 Susy Patiño DO [address] [place], [address], [place] - [facility] 05/10/2022 16:25:34 OBGyn Episode No OBEpisode recorded.
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
== END 2024-05-22 15:30 | disposition home or self-care (01) ==
PROVIDERS: PCP Nurse Practitioner Family; Visit Provider Nurse Practitioner Family
DX: E03.9 Hypothyroidism, unspecified (principal); Z00.00 Encounter for general adult medical examination without abnormal findings

== ENCOUNTER 2024-05-22 15:37 | Outpatient (REF) | payer MEDICARE, MEDICAID, SELFPAY ==
[2024-05-22 18:32] LABS: TSH reflex Free T4 1.49 uIU/mL (0.32-4.0)
== END 2024-05-22 15:38 | disposition home or self-care (01) ==
LOC: HO.WFDLDS 15:37
PROVIDERS: Visit Provider Nurse Practitioner Family
DX: E03.9 Hypothyroidism, unspecified (principal)
CPT/HCPCS: 36415; 84443; 96127; 99212

== ENCOUNTER 2024-06-18 07:11 | Outpatient (REF) | payer MEDICARE, MEDICAID, SELFPAY ==
--- OUTSIDE RECORDS SUMMARY | 2024-06-18 07:14 | XMS_ITS | Data Portability ---
Author Organization [facility] Address [address] [place] [address] Care Team Providers Care Watch Caser Name Role Phone CHANDANA GLEZ Primary Care [...] By Organization Details Last Modified Time 05/10/2022 [id number] cough: care instructions Not available 05/10/2022 16:20:58 Add Mucinex for your cough. Complete course of prednisone Not available 05/10/2022 16:20:58 Reason for Referral None Reported. Problems Name Problem SNOMED Code Status Onset Date Resolution Date Notes Provider Name and Address Organization Details Recorded Time Disorder of thyroid gland 30952384 Active 023 [facility] 16:10:20 Problem [...] Updated DateTime 3 172.72 cm 22.8 kg/m2 93547.8 6 g 0 18 /min 100 % 100 % 82 /min 98.2 [degF] 118 mm[Hg] 73 mm[Hg] FIDEL CHOI - [employer] [facility] 3 16:12:11 Social History Question Answer [...] SNOMED-CT Code Diagnosis ICD10 Code Diagnosis Note [id number] [address] [facility] [place] [address] 02/24/2020 19:42:04 02/25/2020 07:50:20 [id number] [address] [facility] [place] [address] 06/23/2020 09:17:37 06/23/2020 10:15:48 [id number] [address] [facility], [place] [address] 07/08/2020 15:32:35 07/08/2020 16:24:21 [id number] [address] [facility], [place] [address] 06/05/2020 12:31:03 06/05/2020 12:57:22 [id number] [address] [facility] [place] [address] 08/19/2020 12:48:04 08/19/2020 13:28:01 [id number] [address] [facility] [place] [address] 01/06/2021 09:16:50 01/06/2021 10:47:38 [id number] [address] [facility] [place] [address] 12/05/2020 09:46:20 12/05/2020 12:50:47 [id number] [address] [facility] [place] [address] 07/20/2020 12:35:33 07/20/2020 14:25:51 [id number] [address] [facility] [place] [address] 05/29/2020 14:40:35 05/29/2020 17:50:03 [id number] Susy Patiño DO [address] [place] [address] 05/10/2022 15:42:00 05/10/2022 16:26:41 Postviral cough 901583503 R05.3 Health Concerns Section Related Observation LastModified by Organization Detai ls LastModified Time None Recorded Concern Status LastModified by Organization Details LastModified Time None Recorded Advance Directives Directive None Recorded Payers Encounter Date Sequence Insurance Name Policy Number Policy Gage Covered Member ID Gage Member ID Guarantor Name 07/20/2020 1 [facility] HEALTH NET PLAN (MEDICAID HMO) [employer] [place] [id number] [place] 08/19/2020 1 [facility] HEALTH NET PLAN (MEDICAID HMO) [employer] [place] [id number] [place] 12/05/2020 1 [facility] (MEDICAID HMO) [employer] [place] [id number] [place] 01/06/2021 1 [facility] HEALTH NET PLAN (MEDICAID HMO) [employer] [place] [id number] [place] 05/10/2022 1 MED[place] [employer] [place] [id number] [place] 05/10/2022 2 [place] [facility] [place] [id number] [place] Notes Date Note Type Note Provider Name and Address Organization Details Recorded Time 05/10/2022 text/html URI symptoms started 5-6 days ago: fever, cough, body aches, chills. Diagnosed with flu 3 days ago. Symptoms resolved. Cough is improving. On prednisone. No further body aches or fever x 2 days. 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 Susy Patiño DO [address] [place], [address], [place] - [facility] 05/10/2022 16:25:34 OBGyn Episode No OBEpisode recorded.
--- OUTSIDE RECORDS SUMMARY | 2024-06-18 07:14 | XMS_ITS | Clinical Summary ---
Author Organization [facility] Address [address] [place] [address] Care Team Providers Care Associate Dean Of Students Name Role Phone Flower Cordon CLOTH CARRIER Primary Care Provider [phone] Source Comments PLEASE NOTE, if this patient [...] evidence of chrissy. Management of medication through [facility] with Bantam 1200 mg HS and seroquel 100 mg HS. Education r/t contacting providing with first sign of manic symptoms. Resolved Problems Problem Noted Date Diagnosed Date Resolved Date Methamphetamine use disorder , severe, in early remission, in controlled environment, dependence ([facility]) 06/06/2018 01/01/2019 Overview (01/01/2019): 12/2018 - History [...] Plan of Treatment Not on file Insurance [facility] [place] MEDICAID [facility] PL[facility] Member Subscriber Plan / Payer ( fective 2018-Present) Name:Geneva Barrera Relation to Subscriber:Self Name:Geneva Barrera Payer ID:[id number] Group ID:Not on file Type:Medicaid Address: [facility] [address] [place] [address] Care Teams Associate Dean Of Students Relationship Specialty Start Date End Date Flower Cordon NP [address] [place] [address] PCP - General Family Medicine, CLOTH CARRIER 08/01/18
[2024-06-18 07:20] LABS: MANUAL DIFF FLAG NO
[2024-06-18 07:53] LABS: Appearance Urine Clear; Color Urine Yellow; Glucose Urine UA Negative (Negative); Leukocyte Esterase Urine Negative (Negative); Nitrite Urine Negative (Negative); Specific Gravity - Urine 1.015 (1.005-1.025); Urine Blood Negative (Negative); Urine Ketones Negative (Negative); Urine Protein Negative (Neg-Trace)
[2024-06-18 07:56] LABS: Basophils Absolute Auto 0.1 X10*3/uL (0.0-0.2); Basophils Percent Auto 0.7 % (0-2); Eosinophils Absolute Auto 0.3 X10*3/uL (0.0-0.4); Eosinophils Percent Auto 4.9 % (0-4); Hematocrit 45.2 % (37.0-47.0); Hemoglobin 15.3 g/dl (12.0-16.0); Imm Gran Abs Auto 0.03 X10*3/uL (0.00-0.03); Imm Gran Pct Auto 0.4 % (0.0-0.4); Lymphocytes Absolute Auto 1.6 X10*3/uL (1.2-4.9); Lymphocytes Percent Auto 22.9 % (20-40); Mean Corpuscular HGB Conc 33.8 g/dl (31.0-35.0); Mean Corpuscular Hemoglobin 32.6 pg (27.0-33.0); Mean Corpuscular Volume 96.2 fL (80.0-98.0); Mean Platelet Volume 9.9 fL (9.4-12.3); Monocytes Absolute Auto 0.5 X10*3/uL (0.1-1.2); Monocytes Percent Auto 7.4 % (2-11); Neutrophils Absolute Auto 4.4 x10*3/uL (2.0-8.3); Neutrophils Percent Auto 63.7 % (45-73); Platelet Count 246 X10*3/uL (160-400); Red Cell Distribution Width 12.9 % (11.0-16.0); White Blood Count 6.9 X10*3/uL (4.8-10.8)
[2024-06-18 08:50] LABS: Alanine Aminotransferase 25 U/L (0-31); Albumin Level 4.5 g/dL (3.5-5.0); Alkaline Phosphatase 54 U/L (39-117); Anion Gap 11 (12-20); Aspartate Amino Transferase 19 U/L (5-31); Bilirubin Total 0.6 mg/dL (0.0-1.0); Blood Urea Nitrogen 11 mg/dL (9-16); Calcium 9.5 mg/dL (8.4-10.2); Carbon Dioxide 29 mmol/L (22-29); Chloride 107 mmol/L (96-108); Estimated Glomerular Filt Rate 59; Glucose Fasting 87 mg/dL (60-99); Potassium 4.6 mmol/L (3.3-5.1); Sodium 142 mmol/L (135-145); Total Protein 7.4 g/dL (6.5-8.0)
== END 2024-06-18 07:12 | disposition home or self-care (01) ==
LOC: HO.LAB 07:11
PROVIDERS: PCP Nurse Practitioner Family; Visit Provider Nurse Practitioner Family
DX: Z00.00 Encounter for general adult medical examination without abnormal findings (principal)
CPT/HCPCS: 36415; 80053; 81003; 85025

== ENCOUNTER 2024-09-26 08:51 | Outpatient (REF) | payer MEDICARE, MEDICAID, SELFPAY ==
--- OUTSIDE RECORDS SUMMARY | 2024-09-26 09:21 | XMS_ITS | Data Portability ---
Author Organization [facility] Address [address] [place] [address] Care Team Providers Care Assessment Technician Name Role Phone CHANDANA GLEZ Primary Care [...] By Organization Details Last Modified Time 05/10/2022 [id number] cough: care instructions Not available 05/10/2022 16:20:58 Add Mucinex for your cough. Complete course of prednisone Not available 05/10/2022 16:20:58 Reason for Referral None Reported. Problems Name Problem SNOMED Code Status Onset Date Resolution Date Notes Provider Name and Address Organization Details Recorded Time Disorder of thyroid gland 65260656 Active 023 [facility] 16:10:20 Problem [...] Updated DateTime 3 172.72 cm 22.8 kg/m2 57989.8 6 g 18 /min 100 % 100 % 82 /min 98.2 [degF] 118 mm[Hg] 73 mm[Hg] FIDEL CHOI - [facility] 3 16:12:11 Social History Question Answer Notes LastModified by Organizat ion Details LastModified Time Tobacco Smoking Status Former Smoker FIDEL moore PA - [facility] 05/10/2022 16:10:55 Which Illicit Or Recreational Drugs Have You Used? Marijuana Information not available 05/10/2022 When Did You Quit Smoking? 1-5yearssince lastcigarette 11 Days Ago Information not available 05/10/2022 Have You Recently Traveled Abroad? No Information not available 05/10/2022 Sex: Unknown Functional Status Question Answer Note LastModified by Organizat ion Details LastModified Time Do you use any illicit or recreational drugs? Yes Information not available 05/10/2022 Do you or have you ever used any other forms of tobacco or nicotine? No Information not available 05/10/2022 What is your level of alcohol consumption? None Information not available 05/10/2022 Mental Status None recorded. Family History Relationship [...] [facility] 05/10/2022 16:09:00 Hep B, adult 11/28/201 8 completed FIDEL DEPINTO null, [place] - [facility] 05/10/2022 16:09:00 Past Encounters Encounter ID Performer Location Encounter Start Date Encounter Closed Date Diagnosis/Indication Diagnosis SNOMED-CT Code Diagnosis ICD10 Code Diagnosis Note [id number] [address] [facility] [place] [address] 02/24/2020 19:42:04 02/25/2020 07:50:20 [id number] [address] [facility] [place] [address] 06/23/2020 09:17:37 06/23/2020 10:15:48 [id number] [address] [facility] [place] [address] 07/08/2020 15:32:35 07/08/2020 16:24:21 [id number] [address] [facility] [place] [address] 06/05/2020 12:31:03 06/05/2020 12:57:22 [id number] [address] [facility] [place] [address] 08/19/2020 12:48:04 08/19/2020 13:28:01 [id number] [address] [facility] [place] [address] 01/06/2021 09:16:50 01/06/2021 10:47:38 [id number] [address] [place] [address] 12/05/2020 09:46:20 12/05/2020 12:50:47 [id number] [address] [place] [address] 07/20/2020 12:35:33 07/20/2020 14:25:51 [id number] [address] [place] [address] 05/29/2020 14:40:35 05/29/2020 17:50:03 [id number] Susy Patiño DO [address] [place] [address] 05/10/2022 15:42:00 05/10/2022 16:26:41 Postviral cough [id number] R05.3 Health Concerns Section Related Observation LastModified by Organization Detai ls LastModified Time None Recorded Concern Status LastModified by Organization Details LastModified Time None Recorded Advance Directives Directive None Recorded Payers Insurance Date Sequence Insurance Name Policy Number Policy Gage Covered Member ID Gage Member ID Guarantor Name 05/10/2022 1 [place] [employer] [place] [id number] [place] 05/10/2022 2 [place] [facility] [place] [id number] [place] 05/10/2022 1 [facility] - HEALTH NET PLAN (MEDICAID HMO) [employer] [place] [id number] [place] 05/10/2022 1 MEDICARE [place]: [employer] [place] [id number] [place] Notes Date Note Type Note Provider Name and Address Organization Details Recorded Time 05/10/2022 text/html URI symptoms started 5-6 days ago: fever, cough, body aches, chills. Diagnosed with flu 3 days ago. Symptoms resolved. Cough is improving. On prednisone. No further body aches or fever x 2 days. 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 Susy Patiño DO [address] [place], [address], [place] - [facility] 05/10/2022 16:25:34 OBGyn Episode No OBEpisode recorded.
[2024-09-26 09:58] LABS: Anion Gap 11 (12-20); Blood Urea Nitrogen 16 mg/dL (9-16); Calcium 9.8 mg/dL (8.4-10.2); Carbon Dioxide 26 mmol/L (22-29); Chloride 106 mmol/L (96-108); Estimated Glomerular Filt Rate > 60; Glucose Fasting 79 mg/dL (60-99); Potassium 4.5 mmol/L (3.3-5.1); Sodium 138 mmol/L (135-145)
[2024-09-26 10:10] LABS: Lithium 0.47 mmol/L (0.60-1.20)
== END 2024-09-26 08:52 | disposition home or self-care (01) ==
LOC: HO.LAB 08:51
PROVIDERS: PCP Nurse Practitioner Family; Visit Provider Nurse Practitioner Psychiatric/Mental Health
DX: Z79.899 Other long term (current) drug therapy (principal)
CPT/HCPCS: 36415; 80048; 80178